=== PATIENT | male | born 1970 | race African-American/Black ===

== ENCOUNTER → 2016-10-29 | Outpatient (CLI) | payer OTHER ==
[2016-10-29 15:08] LABS: APPEARANCE,URINE CLEAR; BILIRUBIN,URINE NEGATIVE (NEGATIVE); CALCIUM OXALATE CRYSTALS,URINE FEW /HPF; GLUCOSE, URINE NEGATIVE (NEGATIVE); KETONES,URINE NEGATIVE (NEGATIVE); LEUKOCYTE ESTERASE,URINE NEGATIVE (NEGATIVE); NITRITE,URINE NEGATIVE (NEGATIVE); PROTEIN,URINE NEGATIVE (NEGATIVE); URINE SPECIFIC GRAVITY 1.014; UROBILINOGEN,URINE NEGATIVE mg/dL (<2.0)
[2016-10-29 15:09] LABS: ABSOLUTE EOSINOPHILS # (AUTO) 0.3 10^3/uL (0.0-0.6); ABSOLUTE LYMPHOCYTES (AUTO) 1.6 10^3/uL (0.5-4.7); ABSOLUTE MONOCYTES (AUTO) 0.8 10^3/uL (0.1-1.4); ABSOLUTE NEUT (AUTO) 4.1 10^3/uL (1.7-8.2); BASOPHILS % (AUTO) 0.7 % (0-2); EOSINOPHILS % (AUTO) 3.8 % (0-6); HEMATOCRIT 53.1 % (37.9-51.0); HEMOGLOBIN 18.4 g/dL (13.5-17.0); HGB HCT DIFFERENCE 2.1; LYMPHOCYTES % (AUTO) 23.6 % (13-45); MEAN CORPUSCULAR HGB CONC 34.7 g/dL (32.0-36.0); MEAN CORPUSCULAR VOLUME 92 fl (80-97); MONOCYTES % (AUTO) 11.6 % (3-13); RED BLOOD COUNT 5.76 10^6/uL (4.35-5.55); RED CELL DISTRIBUTION WIDTH 14.3 % (11.5-14.0); SEGMENTED NEUTROPHILS % (AUTO) 60.3 % (42-78); WHITE BLOOD COUNT 6.8 10^3/uL (4.0-10.5)
[2016-10-29 15:24] LABS: ANION GAP 11 (5-19); BLOOD UREA NITROGEN 9 mg/dL (7-20); CALCIUM 9.5 mg/dL (8.4-10.2); CARBON DIOXIDE 23 mmol/L (22-30); CHLORIDE 107 mmol/L (98-107); CREATININE RESULT 1.08 mg/dL (0.52-1.25); GLUCOSE 92 mg/dL (75-110); POTASSIUM 4.3 mmol/L (3.6-5.0); SODIUM 140.6 mmol/L (137-145)
--- NOTE | 2016-10-29 17:15 | RADIOLOGY REPORT (SQ) ---
EXAM DESCRIPTION: CHEST PA/LATERAL COMPLETED DATE/TIME: 10/29/2016 2:58 pm REASON FOR STUDY: PRE OP COMPARISON: None. EXAM PARAMETERS: NUMBER OF VIEWS: two views TECHNIQUE: Digital Frontal and Lateral radiographic views of the chest acquired. RADIATION DOSE: NA LIMITATIONS: none FINDINGS: LUNGS AND PLEURA: No opacities, masses or pneumothorax. No pleural effusion. MEDIASTINUM AND HILAR STRUCTURES: No masses or contour abnormalities. HEART AND VASCULAR STRUCTURES: Heart normal size. No evidence for failure. BONES: No acute findings. HARDWARE: None in the chest. OTHER: No other significant finding. IMPRESSION: NO SIGNIFICANT RADIOGRAPHIC FINDING IN THE CHEST. TECHNICAL DOCUMENTATION: JOB ID: [id number] [employer]- All Rights Reserved
--- NOTE | 2016-10-29 20:18 | EKG REPORT ---
SEVERITY:- ABNORMAL ECG - SINUS RHYTHM LEFT ANTERIOR FASCICULAR BLOCK : Confirmed by: Aylin Eddy 29-Oct-2016 20:18:25
== END ==
LOC: OD 13:35
PROVIDERS: ATTEND Orthopaedic Surgery
DX: Z01.810 Encounter for preprocedural cardiovascular examination (principal); Z01.812 Encounter for preprocedural laboratory examination; Z01.818 Encounter for other preprocedural examination
CPT/HCPCS: 36415; 71020; 80048; 81001; 85025; 93005; 93010

== ENCOUNTER 2016-11-16 07:11 | Inpatient (IN) | payer OTHER ==
[~2016-11-16 07:11] MED LIST: BUPIVACAINE INJ/PF LIPOSOME/PF 266 MG/20 ML SDV INJ PRN; CEFAZOLIN INJ 1 GM VIAL IV PRN; IBUPROFEN 800 MG in NORMAL SALINE 250 ML IV PRN; LACTATED RINGERS 1000 ML IV PRN; LANSOPRAZOLE 15 MG TAB.RAP.DR PO PRN; LIDOCAINE 0.5% INJ-PF (5 MG/ML) 50 ML SDV SUBCUT PRN; OXYCODONE HCL SR 10 MG TABLET PO PRN; VANCOMYCIN HCL 1,000 MG in DEXTROSE 5%-WATER 250 ML IV PRN
[2016-11-16] MEDS ORDERED: DEXAMETHASONE SOD PHOSPHATE INJ 4 MG/1 ML VIAL ONE (07:30)
[2016-11-16] MEDS ORDERED: PROPOFOL INJ 200 MG/20 ML VIAL IV ONE (07:30)
[2016-11-16] MEDS ORDERED: MIDAZOLAM 2 MG/2 ML INJ ONE ×2 (07:30→09:38)
[2016-11-16] MEDS ORDERED: ONDANSETRON HCL INJ/PF 4 MG/2 ML SDV ONE (07:30)
[2016-11-16] MEDS ORDERED: TRANEXAMIC ACID INJ/PF 1,000 MG/10 ML SDV IV ONE ×2 (07:30→12:06)
[2016-11-16] MEDS ORDERED: FENTANYL CITRATE INJ/PF 100 MCG/2 ML AMPUL ONE (07:30)
[2016-11-16] MEDS ORDERED: MORPHINE SULFATE 10 MG/ML INJ ONE (07:31)
[2016-11-16] MEDS: BUPIVACAINE INJ/PF LIPOSOME/PF 266 MG/20 ML SDV ONE ×2 (08:19→09:37)
[2016-11-16] MEDS: THROMBIN (BOVINE) TOPICAL 20000 UNIT VIAL ONE ×2 (08:21→09:37)
[2016-11-16] MEDS: THROMBIN (BOVINE) 5000 UNIT EPITAXIS KIT ONE ×2 (08:21→09:37)
[2016-11-16] MEDS ORDERED: DIPHENHYDRAMINE HCL 50 MG/ML VIAL IV PRN ×2 (10:09→10:32)
[2016-11-16] MEDS ORDERED: MEPERIDINE HCL/PF INJ 25 MG/1 ML DISP.SYRIN IV PRN (10:09)
[2016-11-16] MEDS ORDERED: FENTANYL CITRATE INJ/PF 100 MCG/2 ML AMPUL IV PRN ×3 (10:09)
[2016-11-16] MEDS ORDERED: PROMETHAZINE HCL INJ 25 MG/1 ML VIAL IV PRN ×2 (10:09)
[2016-11-16] MEDS ORDERED: MORPHINE SULFATE 10 MG/ML INJ IV PRN ×3 (10:09→10:32)
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
[2016-11-16] MEDS ORDERED: MAG HYDROX/AL HYDROX/SIMETH SUSP 30 ML UDCUP PO PRN ×2 (10:32→13:00)
[2016-11-16] MEDS ORDERED: OXYCODONE HCL IR 5 MG TABLET PO PRN (10:32)
[2016-11-16] MEDS ORDERED: RINGERS SOLUTION,LACTATED 1,000 ML IV PRN (10:32)
[2016-11-16] MEDS ORDERED: ONDANSETRON HCL INJ/PF 4 MG/2 ML SDV IV PRN ×2 (10:32→13:00)
[2016-11-16] MEDS ORDERED: ONDANSETRON 4 MG TAB.RAPDIS PO PRN ×2 (10:32→13:00)
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
[2016-11-16] MEDS: MORPHINE SULFATE 10 MG/ML INJ IV PRN ×3 (13:55→18:21)
[2016-11-16] MEDS ORDERED: ACETAMINOPHEN 100 ML IV ONE (16:32)
[2016-11-16] MEDS: IBUPROFEN 800 MG in NORMAL SALINE 250 ML IV SCH (18:15)
[2016-11-16] MEDS: RIVAROXABAN 10 MG TABLET PO SCH (21:53)
[2016-11-16] MEDS: PREGABALIN 75 MG CAPSULE PO SCH (21:53)
[2016-11-16] MEDS ORDERED: VANCOMYCIN HCL 1,000 MG in DEXTROSE 5%-WATER 250 ML IV ONE (22:00)
[2016-11-16] MEDS ORDERED: OXYCODONE HCL SR 10 MG TABLET PO SCH (22:00)
[2016-11-16] MEDS: ZOLPIDEM TARTRATE 5 MG TABLET PO PRN (23:51)
[2016-11-17] MEDS: MORPHINE SULFATE 10 MG/ML INJ IV PRN ×2 (00:08→03:20)
[2016-11-17] MEDS: IBUPROFEN 800 MG in NORMAL SALINE 250 ML IV SCH ×3 (01:40→18:28)
[2016-11-17] MEDS: LANSOPRAZOLE 30 MG TAB.RAP.DR PO SCH (05:27)
[2016-11-17 06:00] LABS: HEMATOCRIT 41.2 % (37.9-51.0); HEMOGLOBIN 14.2 g/dL (13.5-17.0); HGB HCT DIFFERENCE 1.4; MEAN CORPUSCULAR HEMOGLOBIN 31.8 pg (27.0-33.4); MEAN CORPUSCULAR HGB CONC 34.5 g/dL (32.0-36.0); MEAN CORPUSCULAR VOLUME 92 fl (80-97); RED BLOOD COUNT 4.47 10^6/uL (4.35-5.55); RED CELL DISTRIBUTION WIDTH 13.8 % (11.5-14.0); WHITE BLOOD COUNT 12.2 10^3/uL (4.0-10.5)
[2016-11-17 06:14] LABS: ANION GAP 8 (5-19); BLOOD UREA NITROGEN 13 mg/dL (7-20); CALCIUM 8.8 mg/dL (8.4-10.2); CARBON DIOXIDE 23 mmol/L (22-30); CHLORIDE 105 mmol/L (98-107); CREATININE RESULT 1.08 mg/dL (0.52-1.25); GLUCOSE 111 mg/dL (75-110); POTASSIUM 4.2 mmol/L (3.6-5.0); SODIUM 135.8 mmol/L (137-145)
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
[2016-11-17] MEDS: METOPROLOL SUCCINATE 50 MG TAB.SR.24H PO SCH (10:44)
[2016-11-17] MEDS: PREGABALIN 75 MG CAPSULE PO SCH ×2 (10:44→21:02)
[2016-11-17] MEDS: OXYCODONE HCL SR 40 MG TABLET PO SCH ×2 (10:44→21:02)
[2016-11-17] MEDS: OXYCODONE HCL IR 5 MG TABLET PO PRN ×2 (10:45→18:28)
[2016-11-17] MEDS: MORPHINE SULFATE 10 MG/ML INJ IM PRN ×2 (13:28→19:30)
[2016-11-17] MEDS: RIVAROXABAN 10 MG TABLET PO SCH (21:03)
[2016-11-18] MEDS: MORPHINE SULFATE 10 MG/ML INJ INJ PRN ×2 (00:22→05:22)
[2016-11-18] MEDS: IBUPROFEN 800 MG in NORMAL SALINE 250 ML IV SCH ×2 (01:09→09:36)
[2016-11-18] MEDS: LANSOPRAZOLE 30 MG TAB.RAP.DR PO SCH (05:19)
[2016-11-18 06:00] LABS: HEMATOCRIT 31.7 % (37.9-51.0); HGB HCT DIFFERENCE 2.2; MEAN CORPUSCULAR HEMOGLOBIN 32.9 pg (27.0-33.4); MEAN CORPUSCULAR HGB CONC 35.6 g/dL (32.0-36.0); MEAN CORPUSCULAR VOLUME 92 fl (80-97); RED BLOOD COUNT 3.44 10^6/uL (4.35-5.55); RED CELL DISTRIBUTION WIDTH 13.6 % (11.5-14.0); WHITE BLOOD COUNT 11.2 10^3/uL (4.0-10.5)
[2016-11-18 06:04] LABS: HEMOGLOBIN 11.3 g/dL (13.5-17.0)
--- NOTE | 2016-11-18 07:14 | PDOC PROGRESS REPORT ---
Subjective Progress Note for:: 11/18/16 Subjective:: 46-year-old -Azerbaijani male 2 days status post total left hip arthroplasty. Patient lying in bed complaining of pain this morning as well as bleeding through his OpSite dressing. Physical Exam Vital Signs: Temp Pulse Resp BP Pulse Ox 36.6 C 87 17 136/74 H 100 11/18/16 00:17 11/18/16 00:17 11/18/16 00:17 11/18/16 00:17 11/18/16 00:17 Intake & Output 11/17/16 11/18/16 11/19/16 06:59 06:59 06:59 Intake Total 7436 1472 Output Total 3350 Balance 4086 1472 Weight 124.74 kg General appearance: PRESENT: no acute distress, well-developed, well-nourished Head exam: PRESENT: atraumatic, normocephalic Pulses: PRESENT: normal dorsalis pedis pul, +2 pedal pulses bilateral Vascular exam: PRESENT: normal capillary refill Additional comments: Left lower extremity is fully extended with patient sitting recumbent in hospital bed. His postop site dressing is saturated with blood and saturated overlying gauze bandage as well. This dressing was removed wound site was clean and new OpSite dressing was placed this morning. Patient is ambulatory with physical therapy he has brisk capillary refill his motor and sensory functions are intact. Musculoskeletal exam: PRESENT: ambulatory Additional comments: Patient has made good progress with physical therapy ambulating 180 feet yesterday. Patient will continue to work with therapy today for further injury elation and increase strength and range of motion of the left lower extremity. Neurological exam: PRESENT: alert, awake, oriented to person, oriented to place , oriented to time, oriented to situation, CN II-XII grossly intact. ABSENT: motor sensory deficit Psychiatric exam: PRESENT: appropriate affect, normal mood. ABSENT: homicidal ideation, suicidal ideation Skin exam: PRESENT: dry, intact, warm. ABSENT: cyanosis, rash Results Laboratory Results: 11/18/16 05:19 11/17/16 05:20 11/18/16 05:19 WBC 11.2 H RBC 3.44 L Hgb 11.3 L D Hct 31.7 L MCV 92 MCH 32.9 MCHC 35.6 RDW 13.6 Plt Count 194 Impressions: Pelvis X-Ray 11/16/16 10:34 IMPRESSION: SATISFACTORY POSTOPERATIVE PELVIS. Assessment & Plan - Diagnosis (1) Arthritis of left hip Is this a current diagnosis for this admission?: Yes - Plan Summary Plan Summary: 46-year-old -Azerbaij[place] male 2 days status post total left hip arthroplasty. Patient is doing well in recovery overall aside from issues with pain management and continued bleeding of the surgical OpSite. Patient's oxycodone was increased in dosage and another dose of IV tranexamic acid was ordered this morning to help control bleeding. We will plan for discharge to his home tomorrow.
[2016-11-18] MEDS: METOPROLOL SUCCINATE 50 MG TAB.SR.24H PO SCH (09:36)
[2016-11-18] MEDS: PREGABALIN 75 MG CAPSULE PO SCH ×2 (09:36→22:09)
[2016-11-18] MEDS: OXYCODONE HCL IR 5 MG TABLET PO PRN ×3 (09:36→19:23)
[2016-11-18] MEDS: TRANEXAMIC ACID INJ/PF 1,000 MG/10 ML SDV IV SCH ×2 (09:36→14:11)
[2016-11-18] MEDS: ASPIRIN 325 MG TABLET PO SCH (09:36)
[2016-11-18] MEDS: OXYCODONE HCL SR 40 MG TABLET PO SCH ×2 (09:36→22:09)
[2016-11-19] MEDS: ZOLPIDEM TARTRATE 5 MG TABLET PO PRN ×2 (01:27→22:06)
[2016-11-19 05:25] LABS: HEMOGLOBIN 10.1 g/dL (13.5-17.0); HGB HCT DIFFERENCE 1.3; MEAN CORPUSCULAR HEMOGLOBIN 31.8 pg (27.0-33.4); MEAN CORPUSCULAR HGB CONC 34.8 g/dL (32.0-36.0); MEAN CORPUSCULAR VOLUME 92 fl (80-97); RED BLOOD COUNT 3.17 10^6/uL (4.35-5.55); RED CELL DISTRIBUTION WIDTH 13.4 % (11.5-14.0); WHITE BLOOD COUNT 10.5 10^3/uL (4.0-10.5)
[2016-11-19] MEDS: LANSOPRAZOLE 30 MG TAB.RAP.DR PO SCH (06:58)
--- NOTE | 2016-11-19 07:01 | PDOC PROGRESS REPORT ---
Subjective Progress Note for:: 11/19/16 Subjective:: Patient continues to complain of pain Physical Exam Vital Signs: Temp Pulse Resp BP Pulse Ox 36.7 C 79 16 115/77 99 11/18/16 23:55 11/18/16 23:55 11/18/16 23:55 11/18/16 23:55 11/18/16 16:43 Intake & Output 11/17/16 11/18/16 11/19/16 06:59 06:59 06:59 Intake Total 7436 1472 200 Output Total 3350 Balance 4086 1472 200 Weight 124.74 kg General appearance: PRESENT: mild distress Head exam: PRESENT: normocephalic Respiratory exam: PRESENT: unlabored Cardiovascular exam: PRESENT: RRR Pulses: PRESENT: +1 pedal pulses bilateral Vascular exam: PRESENT: normal capillary refill GI/Abdominal exam: PRESENT: soft Rectal exam: PRESENT: deferred Extremities exam: PRESENT: other - Left hip dressing saturated. Changed with an OpSite. Leg lengths are equal. Distal neurovascular examination is intact. Neurological exam: PRESENT: alert, awake, oriented to person, oriented to place , oriented to time, oriented to situation. ABSENT: motor sensory deficit Psychiatric exam: PRESENT: appropriate affect, normal mood. ABSENT: homicidal ideation, suicidal ideation Skin exam: PRESENT: dry, intact, warm. ABSENT: cyanosis, rash Results Laboratory Results: 11/19/16 04:25 11/17/16 05:20 11/19/16 04:25 WBC 10.5 RBC 3.17 L Hgb 10.1 L Hct 29.0 L MCV 92 MCH 31.8 MCHC 34.8 RDW 13.4 Plt Count 181 Impressions: Pelvis X-Ray 11/16/16 10:34 IMPRESSION: SATISFACTORY POSTOPERATIVE PELVIS. Status: Imported from PACS Assessment & Plan - Diagnosis (1) Arthritis of left hip Is this a current diagnosis for this admission?: Yes Plan: 46-year-old black male postop day 3 status post left hip arthroplasty. Patient continues to have some wound drainage. Making progress with physical therapy. Because of social situation we will look into assisted facility placement. - Time Time Spent with patient: 15-24 minutes Anticipated discharge: SNF Within: when bed available
[2016-11-19] MEDS: OXYCODONE HCL SR 40 MG TABLET PO SCH ×2 (08:47→22:05)
[2016-11-19] MEDS: METOPROLOL SUCCINATE 50 MG TAB.SR.24H PO SCH (08:47)
[2016-11-19] MEDS: OXYCODONE HCL IR 5 MG TABLET PO PRN ×3 (08:47→19:18)
[2016-11-19] MEDS: ASPIRIN 325 MG TABLET PO SCH (08:47)
[2016-11-19] MEDS: PREGABALIN 75 MG CAPSULE PO SCH ×2 (08:47→22:06)
[2016-11-20] MEDS: OXYCODONE HCL IR 5 MG TABLET PO PRN ×2 (03:15→07:51)
[2016-11-20] MEDS: LANSOPRAZOLE 30 MG TAB.RAP.DR PO SCH (06:50)
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
[2016-11-20] MEDS: ASPIRIN 325 MG TABLET PO SCH (09:51)
[2016-11-20] MEDS: OXYCODONE HCL SR 40 MG TABLET PO SCH (09:51)
[2016-11-20] MEDS: PREGABALIN 75 MG CAPSULE PO SCH (09:52)
[2016-11-20] MEDS: METOPROLOL SUCCINATE 50 MG TAB.SR.24H PO SCH (09:52)
[2016-11-20 11:30] VITALS: BP 138/59
== END 2016-11-20 12:04 | disposition home health service (06) | DRG 470 ==
LOC: INOR 07:11 → 4S 12:45
PROVIDERS: ADMIT Orthopaedic Surgery; ATTEND Orthopaedic Surgery
PROC: 0KCG0ZZ Extirpation of Matter from Left Trunk Muscle, Open Approach (ICD-10-PCS; 2016-11-16)
PROC: 01NF0ZZ Release Sciatic Nerve, Open Approach (ICD-10-PCS; 2016-11-16)
PROC: 0SRB02A Replacement of Left Hip Joint with Metal on Polyethylene Synthetic Substitute, Uncemented, Open Approach (ICD-10-PCS; principal; 2016-11-16 09:00)
DX: M16.52 Unilateral post-traumatic osteoarthritis, left hip (principal); Z68.42 Body mass index [BMI] 45.0-49.9, adult; E66.3 Overweight; Z18.89 Other specified retained foreign body fragments; S72.002S Fracture of unspecified part of neck of left femur, sequela; W32.0XXD Accidental handgun discharge, subsequent encounter
CPT/HCPCS: 01214; 36415; 72170; 80048; 85027; 86850; 86900; 86901; 88304; 88311; 94799; C1713; C9290; J0690; J1100; J1741; J2250; J2270; J2405; J2704; J3010; J3370; J3490; J7050; J7060

== ENCOUNTER 2016-12-27 12:17 | Emergency (ER) | payer SELFPAY ==
--- NOTE | 2016-12-27 12:41 | ER Document Report ---
ED Medical Screen (RME) - General Chief Complaint: Hip Pain Stated Complaint: HIP PAIN Time Seen by Provider: 12/27/16 12:34 Notes: 46-year-old male patient had a total left hip on 11/16/2016 for traumatic arthritis and malunion of prior fracture. He reports that the wound continues to drain. Yesterday he began having pain in the left hip such that it is too painful to move the hip. That is a new problem. I have greeted and performed a rapid initial assessment of this patient. A comprehensive ED assessment and evaluation of the patient, analysis of test results and completion of the medical decision making process will be conducted by additional ED providers. TRAVEL OUTSIDE OF THE [place] IN LAST 30 DAYS: No - Related Data Allergies/Adverse Reactions: acetaminophen [From Tylenol] Adverse Reaction (Verified 12/27/16 12:21) Past Medical History - Past Medical History Cardiac Medical History: Reports: Hx Hypertension Denies: Hx Atrial Fibrillation, Hx Congestive Heart Failure, Hx Coronary Artery Disease, Hx Heart Attack, Hx Hypercholesterolemia, Hx Peripheral Vascular Disease, Hx Heart Murmur Renal/ Medical History: Denies: Hx Peritoneal Dialysis Musculoskeltal Medical History: Reports Hx Arthritis, Denies Hx Fibromyalgia, Denies Hx Muscular Dystrophy, Reports Hx Musculoskeletal Trauma - LEFT HIP Traumatic Medical History: Denies: Hx Fractures Past Surgical History: Reports: Hx Orthopedic Surgery. Denies: Hx Appendectomy , Hx Bowel Surgery, Hx Cholecystectomy, Hx Coronary Artery Bypass Graft, Hx Gastric Bypass Surgery, Hx Herniorrhaphy, Hx Pacemaker, Hx Tonsillectomy - Immunizations Immunizations up to date: Yes History of Influenza Vaccine for 11/2016 - 04/2017 Season: Refused Physical Exam - Vital signs Vitals: Temp Pulse Resp BP Pulse Ox 99.3 F 114 H 18 135/90 H 97 12/27/16 12:21 12/27/16 12:21 12/27/16 12:21 12/27/16 12:21 12/27/16 12:21 Course - Vital Signs Vital signs: Temp Pulse Resp BP Pulse Ox 99.3 F 114 H 18 135/90 H 97 12/27/16 12:21 12/27/16 12:21 12/27/16 12:21 12/27/16 12:21 12/27/16 12:21
[2016-12-27 13:16] LABS: ABSOLUTE BASOPHILS # (AUTO) 0.1 10^3/uL (0.0-0.2); ABSOLUTE EOSINOPHILS # (AUTO) 0.2 10^3/uL (0.0-0.6); ABSOLUTE LYMPHOCYTES (AUTO) 1.3 10^3/uL (0.5-4.7); ABSOLUTE MONOCYTES (AUTO) 1.7 10^3/uL (0.1-1.4); ABSOLUTE NEUT (AUTO) 8.8 10^3/uL (1.7-8.2); BASOPHILS % (AUTO) 0.8 % (0-2); EOSINOPHILS % (AUTO) 1.3 % (0-6); HEMATOCRIT 46.3 % (37.9-51.0); HEMOGLOBIN 15.7 g/dL (13.5-17.0); HGB HCT DIFFERENCE 0.8; LYMPHOCYTES % (AUTO) 11.1 % (13-45); MEAN CORPUSCULAR HEMOGLOBIN 30.8 pg (27.0-33.4); MEAN CORPUSCULAR HGB CONC 33.8 g/dL (32.0-36.0); MEAN CORPUSCULAR VOLUME 91 fl (80-97); MONOCYTES % (AUTO) 14.2 % (3-13); RED BLOOD COUNT 5.09 10^6/uL (4.35-5.55); RED CELL DISTRIBUTION WIDTH 13.7 % (11.5-14.0); SEGMENTED NEUTROPHILS % (AUTO) 72.6 % (42-78); WHITE BLOOD COUNT 12.1 10^3/uL (4.0-10.5)
[2016-12-27 13:33] LABS: ALANINE AMINOTRANSFERASE 33 U/L (21-72); ALBUMIN 4.4 g/dL (3.5-5.0); ALKALINE PHOSPHATASE 90 U/L (38-126); ANION GAP 16 (5-19); ASPARTATE AMINO TRANSFERASE 24 U/L (17-59); BILIRUBIN,DIRECT 0.3 mg/dL (0.0-0.4); BILIRUBIN,TOTAL 1.4 mg/dL (0.2-1.3); BLOOD UREA NITROGEN 9 mg/dL (7-20); CALCIUM 9.4 mg/dL (8.4-10.2); CARBON DIOXIDE 21 mmol/L (22-30); CHLORIDE 102 mmol/L (98-107); GLUCOSE 105 mg/dL (75-110); SODIUM 138.9 mmol/L (137-145); TOTAL PROTEIN 8.1 g/dL (6.3-8.2)
--- NOTE | 2016-12-27 13:34 | RADIOLOGY REPORT (SQ) ---
EXAM DESCRIPTION: HIP LEFT AP/LATERAL COMPLETED DATE/TIME: 12/27/2016 1:15 pm REASON FOR STUDY: new pain w/ movement COMPARISON: 09/03/2015 NUMBER OF VIEWS: Two views. TECHNIQUE: AP pelvis and additional frog-leg view of the left hip. LIMITATIONS: None. FINDINGS: MINERALIZATION: Normal. LEFT HIP: Intact hip arthroplasty. RIGHT HIP: No fracture or dislocation. No worrisome bone lesions. PUBIS AND ISCHIUM: No fracture. PELVIS: No fracture. SACRUM: No fracture or dislocation. No worrisome bone lesions. LOWER LUMBAR SPINE: No fracture or dislocation. No worrisome bone lesions. No significant disc disea se. SOFT TISSUES: No findings. OTHER: No other significant finding. IMPRESSION: NO RADIOGRAPHIC EVIDENCE OF ACUTE INJURY. TECHNICAL DOCUMENTATION: JOB ID: [id number] [employer]- All Rights Reserved
[2016-12-27 13:36] LABS: APPEARANCE,URINE SLIGHTLY-CLOUDY; BILIRUBIN,URINE NEGATIVE (NEGATIVE); GLUCOSE, URINE NEGATIVE (NEGATIVE); KETONES,URINE NEGATIVE (NEGATIVE); LEUKOCYTE ESTERASE,URINE NEGATIVE (NEGATIVE); NITRITE,URINE NEGATIVE (NEGATIVE); PROTEIN,URINE 30 mg/dL (NEGATIVE); URINE SPECIFIC GRAVITY 1.031; UROBILINOGEN,URINE NEGATIVE mg/dL (<2.0)
[2016-12-27 13:53] LABS: ERYTHROCYTE SEDIMENTATION RATE 10 mm/hr (0-15)
[2016-12-27] MEDS ORDERED: OXYCODONE HCL IR 5 MG TABLET PO ONE (14:25)
[2016-12-27] MEDS ORDERED: CEPHALEXIN 500 MG CAPSULE PO ONE (14:25)
[2016-12-27] MEDS ORDERED: IBUPROFEN 600 MG TABLET PO ONE (14:25)
--- NOTE | 2016-12-27 14:31 | ER Document Report ---
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 He has an appointment with Dr. Cho in 2 days. Patient said the pain is constant and is not affected by his walking or hip flexion or extension. He denies fevers, numbness, tingling, new injury, chest pain or shortness of breath. TRAVEL OUTSIDE OF THE [place] IN LAST 30 DAYS: No - Related Data Allergies/Adverse Reactions: acetaminophen [From Tylenol] Adverse Reaction (Verified 12/27/16 12:21) Past Medical History - General Information source: Patient - Social History Smoking Status: Current Every Day Smoker Chew tobacco use (# tins/day): No Frequency of alcohol use: Heavy Drug Abuse: Marijuana Family History: Reviewed & Not Pertinent Patient has suicidal ideation: No Patient has homicidal ideation: No - Past Medical History Cardiac Medical History: Reports: Hx Hypertension Denies: Hx Atrial Fibrillation, Hx Congestive Heart Failure, Hx Coronary Artery Disease, Hx Heart Attack, Hx Hypercholesterolemia, Hx Peripheral Vascular Disease, Hx Heart Murmur Renal/ Medical History: Denies: Hx Peritoneal Dialysis Musculoskeltal Medical History: Reports Hx Arthritis, Denies Hx Fibromyalgia, Denies Hx Muscular Dystrophy, Reports Hx Musculoskeletal Trauma - LEFT HIP Traumatic Medical History: Denies: Hx Fractures Past Surgical History: Reports: Hx Orthopedic Surgery - right knee left hip replacement. Denies: Hx Appendectomy, Hx Bowel Surgery, Hx Cholecystectomy, Hx Coronary Artery Bypass Graft, Hx Gastric Bypass Surgery, Hx Herniorrhaphy, Hx Pacemaker, Hx Tonsillectomy - Immunizations Immunizations up to date: Yes Hx Diphtheria, Pertussis, Tetanus Vaccination: Yes Review of Systems - Review of Systems Notes: REVIEW OF SYSTEMS: CONSTITUTIONAL: -fevers, -chills EENT: -eye pain, -difficulty swallowing, -nasal congestion CARDIOVASCULAR:-chest pain, -syncope. RESPIRATORY: -cough, -SOB GASTROINTESTINAL: -abdominal pain, -nausea, -vomiting, -diarrhea GENITOURINARY: -dysuria, -hematuria MUSCULOSKELETAL: -back pain, -neck pain, +left hip pain SKIN: +left hip surgical wound HEMATOLOGIC: -easy bruising or bleeding. LYMPHATIC: -swollen, enlarged glands. NEUROLOGICAL: -altered mental status or loss of consciousness, -headache, - neurologic symptoms PSYCHIATRIC: -anxiety, -depression. ALL OTHER SYSTEMS REVIEWED AND NEGATIVE. Physical Exam - Vital signs Vitals: Temp Pulse Resp BP Pulse Ox 99.3 F 114 H 18 135/90 H 97 12/27/16 12:21 12/27/16 12:21 12/27/16 12:21 12/27/16 12:21 12/27/16 12:21 - Notes Notes: PHYSICAL EXAMINATION: GENERAL: Well-appearing, well-nourished and in no acute distress. HEAD: Atraumatic, normocephalic. EYES: Pupils equal round and reactive to light, extraocular movements intact, sclera anicteric, conjunctiva are normal. ENT: nares patent, oropharynx clear without exudates. Moist mucous membranes. NECK: Normal range of motion, supple without lymphadenopathy LUNGS: Breath sounds clear to auscultation bilaterally and equal. No wheezes rales or rhonchi. HEART: Regular rate and rhythm without murmurs ABDOMEN: Soft, nontender, normoactive bowel sounds. No guarding, no rebound. No masses appreciated. EXTREMITIES: Normal range of motion, no pitting or edema. No cyanosis. NEUROLOGICAL: Cranial nerves grossly intact. Normal speech, normal gait. Normal sensory and motor exams. PSYCH: Normal mood, normal affect. SKIN: Warm, Dry, normal turgor. Left lateral hip surgical wound with 2 areas of serous drainage, no surrounding erythema or fluctuant areas under wound. Course - Re-evaluation Re-evalutation: Patient appears well. His initial tachycardia resolved after his pain was controlled. There is no evidence of a septic hip at this time with a normal ESR and no pain on flexion or extension of the left hip. Will begin antibiotics and have him follow-up with his orthopedic surgeon as scheduled in 2 days for recheck of his symptoms. Given very strict return precautions, especially about septic hip and abscess formation, and he understands. - Vital Signs Vital signs: Temp Pulse Resp BP Pulse Ox 98.7 F 82 20 143/86 H 97 12/27/16 15:32 12/27/16 15:32 12/27/16 15:32 12/27/16 15:32 12/27/16 15:32 - Laboratory Result Diagrams: 12/27/16 13:00 12/27/16 13:00 Laboratory results interpreted by me: 12/27/16 12/27/16 12/27/16 13:00 13:00 13:00 WBC 12.1 H Lymphocytes % 11.1 L Monocytes % 14.2 H Absolute Neutrophils 8.8 H Absolute Monocytes 1.7 H Carbon Dioxide 21 L Total Bilirubin 1.4 H Urine Protein 30 H Urine Blood SMALL H - Diagnostic Test Radiology reviewed: Image reviewed, Reports reviewed Discharge - Discharge Clinical Impression: Infected wound Condition: Stable Disposition: HOME, SELF-CARE Additional Instructions: Take the full course of antibiotics as prescribed. You may take Motrin for pain and hydrocodone for severe pain. You must follow-up with Dr. Cho tomorrow for a recheck of your symptoms. Return to the ER if you have worsening pain, fevers or difficulty moving your hip. CELLULITIS: You have an infection of your skin and underlying soft tissues called cellulitis. This is due to bacteria, which can enter through any break in the skin, or even through an irritated hair follicle. Untreated, cellulitis will usually worsen. Antibiotics are required. Usually, warm packs or warm soaks, and elevation of the infected area are recommended. You should start getting better within 24 to 36 hours. Most infections respond quickly to the right medication. Follow-up care is important, however, to check for abscess (boil) formation, unsuspected foreign body, or resistant infection. If you develop fever, chills, or if the area of infection is becoming rapidly more swollen or painful, call the doctor at once. ANTIBIOTIC THERAPY: You have been given an antibiotic prescription. It's important that you take all the medication, unless instructed otherwise by your physician. Failure to complete the entire course can result in relapse of your condition. Common side effects of antibiotics include nausea, intestinal cramping, or diarrhea. Women may develop vaginal yeast infections, and babies can get yeast (thrush) in the mouth following the use of antibiotics. Contact your physician if you develop significant side effects from this medication. Allergy to this antibiotic can result in hives, wheezing, faintness, or itching. If symptoms of allergy occur, stop the medication and call the doctor. ORAL NARCOTIC MEDICATION: You have been given a prescription for pain control. This medication is a narcotic. It's best taken with food, as nausea can result if taken on an empty stomach. Don't operate machinery or drive within six hours of taking this medication. Do not combine this medicine with alcohol, or with any medication which can cause sedation (such as cold tablets or sleeping pills) unless you get permission from the physician. Narcotics tend to cause constipation. If possible, drink plenty of fluids and eat a diet high in fiber and fruits. Please be aware that prescription narcotics also have the potential for abuse. People become addicted to these medications because of the general sense of wellbeing that they induce. This feeling along with a significant reduction in tension, anxiety, and aggression provides a stimulating seductive quality to these drugs. Once your pain is under control, we encourage you to discard your unused narcotics. FOLLOW-UP CARE: If you have been referred to a physician for follow-up care, call the physician s office for an appointment as you were instructed or within the next two days. If you experience worsening or a significant change in your symptoms, notify the physician immediately or return to the Emergency Department at any time for re-evaluation. Prescriptions: Cephalexin Monohydrate [Keflex 500 mg Capsule] 500 mg PO TID 7 Days capsule Hydrocodone/Ibuprofen [Ibudone 5-200 mg Tablet] 1 each PO Q6H PRN #7 tablet PRN Reason: Referrals: JOVON CHO MD [ACTIVE STAFF] - Follow up as needed
[2016-12-27 15:36] VITALS: BP 143/86
== END 2016-12-27 15:36 | disposition home or self-care (01) ==
LOC: ER 12:17
DX: T81.4XXA Infection following a procedure, initial encounter (principal); Y83.8 Other surgical procedures as the cause of abnormal reaction of the patient, or of later complication, without mention of misadventure at the time of the procedure; Z96.642 Presence of left artificial hip joint; I10 Essential (primary) hypertension
CPT/HCPCS: 36415; 80053; 81001; 85025; 85652; 87040; 99284

== ENCOUNTER → 2017-01-19 | Outpatient (CLI) | payer OTHER ==
--- NOTE | 2017-01-19 16:20 | RADIOLOGY REPORT (SQ) ---
EXAM DESCRIPTION: NM 3 PHASE BONE SCAN COMPLETED DATE/TIME: 01/19/2017 3:56 pm REASON FOR STUDY: T81.4XXA INFECTION FOLLOWING A PROCEDURE, INITIAL ENCOUNTER T81.4XXA INFECTION FO LLOWING A PROCEDURE, INITIAL ENCOUNTER COMPARISON: X-ray dated 12/27/2016 and 11/16/2016. RADIONUCLIDE AND DOSE: 22.0 millicuries Tc99m MDP. The route of agent administration: Intravenous. ADDITIONAL DRUGS AND DOSES: None. TECHNIQUE: Following injection of the radiopharmaceutical, serial blood flow images acquired. Equil ibrium blood pool images then acquired. Routine delayed images at 3 hour acquired of the areas of cl inical concern with additional focused images as needed. AREA OF INTEREST: Pelvis and hips. LIMITATIONS: None. FINDINGS: VASCULAR FLOW IMAGES: No asymmetry or focal areas of hyperemia. BLOOD POOL IMAGES: No asymmetry or focal areas of soft-tissue hyper-perfusion. BONES: Photopenia in the left hip secondary to prosthesis. Prominent activity in the proximal left f emur and left acetabulum. Activity in the right and left side of the sacrum. KIDNEYS: Symmetric excretion without obstruction. OTHER: No other significant finding. IMPRESSION: 1. PROMINENT ACTIVITY IN THE PROXIMAL LEFT FEMUR AND LEFT ACETABULUM. THE PATIENT IS 2 MONTHS POSTOP ERATIVE FROM LEFT HIP PROSTHESIS AND THIS COULD REPRESENT EXPECTED POSTOPERATIVE ACTIVITY SECONDARY T O BONY HEALING. 2. ACTIVITY IN THE RIGHT AND LEFT SIDE OF THE SACRUM. NO SIGNIFICANT FINDINGS ON PREVIOUS X-RAY (01/2017). CANNOT EXCLUDE POSSIBLE OCCULT FRACTURE OR INSUFFICIENCY FRACTURE. RECOMMEND REPEAT X-RAY OF THE SACRUM AND IF NO ABNORMAL FINDINGS FOLLOW-UP MRI MAY BE INDICATED. COMMENT: Quality measure 147: Current bone scan is compared with any available plain radiographs, p rior bone scans, and CT/MRI. TECHNICAL DOCUMENTATION: JOB ID: [id number] [employer]- All Rights Reserved
== END ==
LOC: RAD 11:20
PROVIDERS: ATTEND Physician Assistant Surgical
DX: T81.4XXA Infection following a procedure, initial encounter (principal)
CPT/HCPCS: 78315; A9561; Q9969

== ENCOUNTER → 2017-01-19 | Outpatient (CLI) | payer OTHER ==
[2017-01-19 14:27] LABS: HEMATOCRIT 47.9 % (37.9-51.0); HEMOGLOBIN 16.4 g/dL (13.5-17.0); HGB HCT DIFFERENCE 1.3; MEAN CORPUSCULAR HEMOGLOBIN 29.9 pg (27.0-33.4); MEAN CORPUSCULAR HGB CONC 34.2 g/dL (32.0-36.0); MEAN CORPUSCULAR VOLUME 88 fl (80-97); RED BLOOD COUNT 5.48 10^6/uL (4.35-5.55); RED CELL DISTRIBUTION WIDTH 13.4 % (11.5-14.0); WHITE BLOOD COUNT 6.4 10^3/uL (4.0-10.5)
[2017-01-19 14:46] LABS: ALANINE AMINOTRANSFERASE 41 U/L (21-72); ALBUMIN 4.4 g/dL (3.5-5.0); ALKALINE PHOSPHATASE 95 U/L (38-126); ANION GAP 15 (5-19); ASPARTATE AMINO TRANSFERASE 27 U/L (17-59); BILIRUBIN,DIRECT 0.4 mg/dL (0.0-0.4); BILIRUBIN,TOTAL 0.5 mg/dL (0.2-1.3); BLOOD UREA NITROGEN 12 mg/dL (7-20); C-REACTIVE PROTEIN 35.3 mg/L (<10.0); CALCIUM 10.3 mg/dL (8.4-10.2); CARBON DIOXIDE 23 mmol/L (22-30); CHLORIDE 104 mmol/L (98-107); CREATININE RESULT 1.05 mg/dL (0.52-1.25); GLUCOSE 90 mg/dL (75-110); POTASSIUM 4.5 mmol/L (3.6-5.0); SODIUM 141.7 mmol/L (137-145); TOTAL PROTEIN 8.4 g/dL (6.3-8.2)
[2017-01-19 15:12] LABS: ERYTHROCYTE SEDIMENTATION RATE 35 mm/hr (0-15)
== END ==
LOC: OD 13:45
PROVIDERS: ATTEND Physician Assistant Surgical
DX: T81.4XXA Infection following a procedure, initial encounter (principal)
CPT/HCPCS: 36415; 80053; 85027; 85652; 86140

== ENCOUNTER → 2017-02-05 | Outpatient (CLI) | payer OTHER ==
--- NOTE | 2017-02-05 16:47 | RADIOLOGY REPORT (SQ) ---
EXAM DESCRIPTION: CT PELVIS WITHOUT COMPLETED DATE/TIME: 02/05/2017 2:10 pm REASON FOR STUDY: PAIN IN LEFT HIP M25.552 PAIN IN LEFT HIP COMPARISON: AP pelvis 12/27/2016, 11/16/2016 Bone scan 01/19/2017 TECHNIQUE: CT scan of the pelvis performed without intravenous or oral contrast. Images reviewed wi th soft tissue and bone windows. Reconstructed coronal and sagittal MPR images reviewed. All images stored on PACS. All CT scanners at this facility use dose modulation, iterative reconstruction, and/or weight based d osing when appropriate to reduce radiation dose to as low as reasonably achievable (ALARA). [facility]: Dose Right [facility]: CareDose [facility]: Dose Right [facility]: Teradose 4D [facility]: [employer] RADIATION DOSE: CT Rad equipment meets quality standard of care and radiation dose reduction techniq ues were employed. CTDIvol: 43.6 mGy. DLP: 1661 mGy-cm. mGy. LIMITATIONS: None. FINDINGS: Normal bone density. On the right side, there is a prominent bony spurring at the upper aspect of the right SI joint. The re is mild bony spurring at the upper aspect of the left SI joint, and asymmetric left-sided facet ar thropathy. Left-sided L5-S1 facet arthropathy likely accounts for focal increased uptake in this are a on prior bone scan 01/19/2017. No occult fractures of the bony pelvis. There is osteoarthritis at the right hip, with joint space narrowing and acetabular rim bony spurring . On the left side, patient is post hip replacement. The acetabular cup is slightly rotated in the cou nter clockwise direction on the coronal images. Single anchoring screw along the dorsal aspect of th e acetabular component. There is lucency between the left aspect acetabulum and acetabular component of the prosthesis. No gross lucency around the femoral component of the prosthesis. No gross CT ev idence of left hip joint effusion Surgical tract over the left lateral gluteal region. No seroma/hematoma. Pelvic organs, pelvic soft tissues unremarkable. No inguinal adenopathy. IMPRESSION: Left acetabular cup appears slightly rotated in a counter clockwise direction on the cor onal images. Persistent lucency between the left bony [place] acetabulum and prosthesis TECHNICAL DOCUMENTATION: JOB ID: [id number] Quality ID # [id number]: Final reports with documentation of one or more dose reduction techniques (e.g., Au tomated exposure control, adjustment of the mA and/or kV according to patient size, use of iterative reconstruction technique) 2010 [employer]- All Rights Reserved
== END ==
LOC: RAD 13:29
PROVIDERS: ATTEND Physician Assistant Surgical
DX: M25.552 Pain in left hip (principal)
CPT/HCPCS: 72192

== ENCOUNTER → 2017-03-02 | Outpatient (CLI) | payer OTHER ==
[2017-03-02 13:15] LABS: HEMATOCRIT 46.1 % (37.9-51.0); HEMOGLOBIN 15.6 g/dL (13.5-17.0); MEAN CORPUSCULAR HEMOGLOBIN 28.5 pg (27.0-33.4); MEAN CORPUSCULAR HGB CONC 33.9 g/dL (32.0-36.0); MEAN CORPUSCULAR VOLUME 84 fl (80-97); PLATELET COUNT 267 10^3/uL (150-450); RED BLOOD COUNT 5.47 10^6/uL (4.35-5.55); RED CELL DISTRIBUTION WIDTH 14.2 % (11.5-14.0); WHITE BLOOD COUNT 5.9 10^3/uL (4.0-10.5)
[2017-03-02 13:17] LABS: APPEARANCE,URINE SLIGHTLY-CLOUDY; BILIRUBIN,URINE NEGATIVE (NEGATIVE); COLOR,URINE YELLOW; GLUCOSE, URINE NEGATIVE (NEGATIVE); KETONES,URINE NEGATIVE (NEGATIVE); LEUKOCYTE ESTERASE,URINE NEGATIVE (NEGATIVE); NITRITE,URINE NEGATIVE (NEGATIVE); PROTEIN,URINE 30 mg/dL (NEGATIVE); URINE SPECIFIC GRAVITY 1.029; UROBILINOGEN,URINE NEGATIVE mg/dL (<2.0)
[2017-03-02 13:43] LABS: ABSOLUTE LYMPHOCYTES# (MANUAL) 1.1 10^3/uL (0.5-4.7); ABSOLUTE NEUTROPHILS# (MANUAL) 3.5 10^3/uL (1.7-8.2); BASOPHILS % (MANUAL) 0 % (0-2); EOSINOPHILS % (MANUAL) 5 % (0-6); LYMPHOCYTES % (MANUAL) 18 % (13-45); MONOCYTES % (MANUAL) 17 % (3-13); SEGMENTED NEUTROPHILS % (MAN) 59 % (42-78); TOTAL CELLS COUNTED 100
[2017-03-02 13:44] LABS: ANISOCYTOSIS SLIGHT; PLATELET COMMENT ADEQUATE; PLATELET LARGE PRESENT; TOXIC GRANULATION SLIGHT
--- NOTE | 2017-03-02 15:45 | RADIOLOGY REPORT (SQ) ---
EXAM DESCRIPTION: CHEST PA/LATERAL COMPLETED DATE/TIME: 03/02/2017 2:50 pm REASON FOR STUDY: PRE OP COMPARISON: 10/29/2016 EXAM PARAMETERS: NUMBER OF VIEWS: two views TECHNIQUE: Digital Frontal and Lateral radiographic views of the chest acquired. RADIATION DOSE: NA LIMITATIONS: none FINDINGS: LUNGS AND PLEURA: No opacities, masses or pneumothorax. No pleural effusion. MEDIASTINUM AND HILAR STRUCTURES: No masses or contour abnormalities. HEART AND VASCULAR STRUCTURES: Heart normal size. No evidence for failure. BONES: No acute findings. HARDWARE: None in the chest. OTHER: No other significant finding. IMPRESSION: NO SIGNIFICANT RADIOGRAPHIC FINDING IN THE CHEST. TECHNICAL DOCUMENTATION: JOB ID: [id number] [employer]- All Rights Reserved
--- NOTE | 2017-03-02 20:28 | EKG REPORT ---
SEVERITY:- OTHERWISE NORMAL ECG - SINUS RHYTHM LEFT AXIS DEVIATION : Confirmed by: Aylin Eddy 02-Mar-2017 20:26:58
[2017-03-03 13:16] LABS: BLOOD UREA NITROGEN 10 mg/dL (7-20); CALCIUM 10.2 mg/dL (8.4-10.2); CARBON DIOXIDE 27 mmol/L (22-30); CHLORIDE 105 mmol/L (98-107); GLUCOSE 89 mg/dL (75-110); POTASSIUM 4.4 mmol/L (3.6-5.0)
[2017-03-03 13:25] LABS: ANION GAP 9 (5-19); SODIUM 141.3 mmol/L (137-145)
== END ==
LOC: OD 11:41
PROVIDERS: ATTEND Orthopaedic Surgery
DX: Z01.818 Encounter for other preprocedural examination (principal)
CPT/HCPCS: 36415; 71046; 80048; 81001; 85025; 93005; 93010

== ENCOUNTER 2017-03-15 06:42 | Inpatient (IN) | payer OTHER ==
[~2017-03-15 06:42] MED LIST changes: +BUPIVACAINE INJ/PF LIPOSOME/PF 266 MG/20 ML SDV IJ PRN; -BUPIVACAINE INJ/PF LIPOSOME/PF 266 MG/20 ML SDV INJ PRN; +BUPIVACAINE INJ/PF LIPOSOME/PF 266 MG/20 ML SDV ONE; -IBUPROFEN 800 MG in NORMAL SALINE 250 ML IV PRN; +IBUPROFEN 800 MG/NS 250 ML IV PRN; +THROMBIN (BOVINE) 5000 UNIT EPITAXIS KIT ONE; +THROMBIN (BOVINE) TOPICAL 20000 UNIT VIAL ONE
[2017-03-15] MEDS ORDERED: FENTANYL CITRATE INJ/PF 100 MCG/2 ML AMPUL ONE (07:05)
[2017-03-15] MEDS ORDERED: ONDANSETRON HCL INJ/PF 4 MG/2 ML SDV ONE (07:05)
[2017-03-15] MEDS ORDERED: MIDAZOLAM 2 MG/2 ML INJ ONE (07:05)
[2017-03-15] MEDS ORDERED: PROPOFOL INJ 200 MG/20 ML VIAL IV ONE ×2 (07:05→09:22)
[2017-03-15] MEDS ORDERED: TRANEXAMIC ACID INJ/PF 1,000 MG/10 ML SDV IV ONE ×2 (07:54→12:00)
[2017-03-15] MEDS ORDERED: HYDROMORPHONE HCL INJ/PF 2 MG/ML AMPULE ONE (07:59)
--- NOTE | 2017-03-15 08:20 | Physician Advisory Note ---
Physician Advisor ProgressNote .: [facility] for this patient. Physician Advisor Statement: Please consider documenting, if you agree: 1. "Surgery needed due to Failed previous joint arthroplasty needing revision due to " (just spelling it out for insurer....) Thanks! CK
[2017-03-15] MEDS ORDERED: PROMETHAZINE HCL INJ 25 MG/1 ML VIAL IV PRN ×2 (09:01)
[2017-03-15] MEDS ORDERED: FENTANYL CITRATE INJ/PF 100 MCG/2 ML AMPUL IV PRN ×3 (09:01)
[2017-03-15] MEDS ORDERED: MORPHINE SULFATE 10 MG/ML INJ IV PRN ×3 (09:01→10:22)
[2017-03-15] MEDS ORDERED: MEPERIDINE HCL/PF INJ 25 MG/1 ML DISP.SYRIN IV PRN (09:01)
[2017-03-15] MEDS ORDERED: DIPHENHYDRAMINE HCL 50 MG/ML VIAL IV PRN ×2 (09:01→10:22)
--- NOTE | 2017-03-15 09:56 | Operative Report ---
Operative Report DATE OF SURGERY: 03/15/17 PREOPERATIVE DIAGNOSIS: Painful left hip arthroplasty, loose acetabular component OPERATION: Left acetabular revision SURGEON: JOVON CHO 1ST BLOG WRITER: BRET DUARTE ANESTHESIA: Spinal TISSUE REMOVED OR ALTERED: Cultures 2 to microbiology. Implant 1 to CSS. Bone reamings 1 to pathology ESTIMATED BLOOD LOSS: 100 PROCEDURE: Implants used: Femur: Unchanged Acetabular shell: 60 mm hemispherical revision shell Liner: 36 mm flat cross-link polyethylene liner Head: 36 mm chrome cobalt head +10 neck extension The patient is placed in a right lateral decubitus position on the operating table. The left lower extremity and hindquarter is prepped and draped in a sterile fashion. A curvilinear incision was made over the greater trochanter a posterior approach the hip was taken. The femoral head is dislocated and the femoral neck transected using an oscillating saw. Attention was next turned to the acetabulum. Soft tissues cleared off the acetabulum using electrocautery. The acetabulum was then prepared using a series of hemispherical reamers until a 59 millimeters reamer is seated. Subsequently a 60 millimeters [place] titanium revision hemispherical shell is impacted into position and secured with one screw. A standard flat V6 millimeters cross-link liner is impacted into the shell. The acetabulum is aggressively tested with a Ki and appears to be solidly fixed. The wound is irrigated with pulsed lavage. A trial reduction was again performed with a 36 mm head and a +10 neck. Findings as previously. The hip was dislocated one last time and the final chrome-cobalt head is impacted onto the trunnion. The hip was reduced. Wound is copiously irrigated with pulsed lavage. Sent closed in layers using interrupted Vicryl followed by hussein. A sterile dressing is applied and the patient's returned to recovery room in satisfactory patient.
[2017-03-15] MEDS ORDERED: ONDANSETRON 4 MG TAB.RAPDIS PO PRN (10:22)
[2017-03-15] MEDS ORDERED: ONDANSETRON HCL INJ/PF 4 MG/2 ML SDV IV PRN (10:22)
[2017-03-15] MEDS ORDERED: MAG HYDROX/AL HYDROX/SIMETH SUSP 30 ML UDCUP PO PRN (10:22)
[2017-03-15] MEDS ORDERED: RINGERS SOLUTION,LACTATED 1,000 ML IV PRN (10:22)
[2017-03-15] MEDS ORDERED: ACETAMINOPHEN 325 MG TABLET PO PRN (10:22)
--- NOTE | 2017-03-15 10:44 | RADIOLOGY REPORT (SQ) ---
EXAM DESCRIPTION: NO CHG FLUORO; HIP UNILATERAL-1 VIEW COMPLETED DATE/TIME: 03/15/2017 10:22 am REASON FOR STUDY: LT HIP HARDWARE PLCMT CHECK ASST WITH C ARM IN OR T84.398A [facility] COMPL OF OTH BONE DEVICES, IMPLANTS AND GRAFTS COMPARISON: None. FLUOROSCOPY TIME: 1 images saved to PACS. Fluoro time: 0 minutes 1 Images saved to PACS TECHNIQUE: Intra-operative images acquired during surgical procedure to evaluate progress. NUMBER OF IMAGES: 1 LIMITATIONS: None. FINDINGS: Total hip replacement. IMPRESSION: IMAGE(S) OBTAINED DURING PROCEDURE. COMMENT: Quality ID 145: Final reports for procedures using fluoroscopy that document radiation exp osure indices, or exposure time and number of fluorographic images (if radiation exposure indices are not available) Please consult full operative report of the attending physician for description of the procedure. TECHNICAL DOCUMENTATION: JOB ID: [id number] [employer]- All Rights Reserved
--- NOTE | 2017-03-15 10:44 | RADIOLOGY REPORT (SQ) ---
EXAM DESCRIPTION: NO CHG FLUORO; HIP UNILATERAL-1 VIEW COMPLETED DATE/TIME: 03/15/2017 10:22 am REASON FOR STUDY: LT HIP HARDWARE PLCMT CHECK ASST WITH C ARM IN OR T84.398A [facility] COMPL OF OTH BONE DEVICES, IMPLANTS AND GRAFTS COMPARISON: None. FLUOROSCOPY TIME: 1 images saved to PACS. Fluoro time: 0 minutes 1 Images saved to PACS TECHNIQUE: Intra-operative images acquired during surgical procedure to evaluate progress. NUMBER OF IMAGES: 1 LIMITATIONS: None. FINDINGS: Total hip replacement. IMPRESSION: IMAGE(S) OBTAINED DURING PROCEDURE. COMMENT: Quality ID 145: Final reports for procedures using fluoroscopy that document radiation exp osure indices, or exposure time and number of fluorographic images (if radiation exposure indices are not available) Please consult full operative report of the attending physician for description of the procedure. TECHNICAL DOCUMENTATION: JOB ID: [id number] [employer]- All Rights Reserved
--- NOTE | 2017-03-15 11:32 | RADIOLOGY REPORT (SQ) ---
EXAM DESCRIPTION: PELVIS AP COMPLETED DATE/TIME: 03/15/2017 11:11 am REASON FOR STUDY: Post Op Long Cassette in PACU T84.398A [facility] COMPL OF OTH BONE DEVICES, IMPLANTS AND GRAFTS COMPARISON: Intraoperative imaging NUMBER OF VIEWS: One view(s). TECHNIQUE: Digital radiographic images of the left hip post-procedure. LIMITATIONS: None. FINDINGS: BONES: No worrisome or unexpected findings post-procedure. DEVICE: Total hip replacement. Components of the device in appropriate location. SOFT TISSUES: No worrisome findings. Expected postoperative soft tissue changes. IMPRESSION: SATISFACTORY POSTOPERATIVE LEFT HIP. TECHNICAL DOCUMENTATION: JOB ID: [id number] [employer]- All Rights Reserved
[2017-03-15] MEDS: MORPHINE SULFATE 10 MG/ML INJ IV PRN ×3 (14:45→19:32)
[2017-03-15] MEDS ORDERED: INFLUENZA ADLT QUAD (36MOS+) 2017-18 VAC 0.5 ML SYR IM PRN (14:46)
[2017-03-15] MEDS ORDERED: DOCUSATE SODIUM 100 MG CAPSULE PO ONE (16:00)
[2017-03-15] MEDS ORDERED: ACETAMINOPHEN 100 ML IV ONE (16:22)
[2017-03-15] MEDS: IBUPROFEN 800 MG in NORMAL SALINE 250 ML IV SCH (17:04)
[2017-03-15] MEDS ORDERED: METOPROLOL TARTRATE 25 MG TABLET PO SCH (18:00)
[2017-03-15] MEDS ORDERED: PREGABALIN 75 MG CAPSULE PO SCH (18:00)
[2017-03-15] MEDS: OXYCODONE HCL IR 5 MG TABLET PO PRN (20:49)
[2017-03-15] MEDS: METOPROLOL TARTRATE 25 MG TABLET PO SCH (22:09)
[2017-03-15] MEDS: OXYCODONE HCL SR 10 MG TABLET PO SCH (22:10)
[2017-03-15] MEDS ORDERED: VANCOMYCIN HCL 1,000 MG in DEXTROSE 5%-WATER 250 ML IV ONE (22:22)
[2017-03-16] MEDS: MORPHINE SULFATE 10 MG/ML INJ IV PRN (01:17)
[2017-03-16] MEDS: ZOLPIDEM TARTRATE 5 MG TABLET PO PRN ×2 (01:17→22:44)
[2017-03-16] MEDS: IBUPROFEN 800 MG in NORMAL SALINE 250 ML IV SCH ×3 (01:17→18:27)
[2017-03-16] MEDS: OXYCODONE HCL IR 5 MG TABLET PO PRN ×2 (05:33→19:42)
[2017-03-16] MEDS: LANSOPRAZOLE 30 MG TAB.RAP.DR PO SCH (05:33)
[2017-03-16 05:43] LABS: HEMATOCRIT 40.1 % (37.9-51.0); HEMOGLOBIN 13.7 g/dL (13.5-17.0); MEAN CORPUSCULAR HEMOGLOBIN 28.5 pg (27.0-33.4); MEAN CORPUSCULAR HGB CONC 34.1 g/dL (32.0-36.0); MEAN CORPUSCULAR VOLUME 84 fl (80-97); PLATELET COUNT 235 10^3/uL (150-450); RED BLOOD COUNT 4.79 10^6/uL (4.35-5.55); RED CELL DISTRIBUTION WIDTH 14.7 % (11.5-14.0); WHITE BLOOD COUNT 7.2 10^3/uL (4.0-10.5)
[2017-03-16 06:05] LABS: ANION GAP 9 (5-19); BLOOD UREA NITROGEN 5 mg/dL (7-20); CALCIUM 8.6 mg/dL (8.4-10.2); CARBON DIOXIDE 27 mmol/L (22-30); CHLORIDE 103 mmol/L (98-107); GLUCOSE 104 mg/dL (75-110); POTASSIUM 3.3 mmol/L (3.6-5.0); SODIUM 139.2 mmol/L (137-145)
--- NOTE | 2017-03-16 06:44 | PDOC PROGRESS REPORT ---
Subjective Progress Note for:: 03/16/17 Subjective:: 46-year-old -Italian male 1 day status post total left hip arthroplasty revision. Patient lying recumbent in hospital bed this morning and is very talkative. Patient reports that he is eager to get up yet has made slow progress with physical therapy. Patient also notes he does not desires to continue taking Lyrica. Patient was reassured that his Lyrica could be discontinued. Reason For Visit: T84.398A [facility] COMPL OF OTH BONE DEVICES, IMPLANTS Physical Exam Vital Signs: Temp Pulse Resp BP Pulse Ox 37.3 C 81 16 133/80 H 97 03/15/17 23:49 03/15/17 23:49 03/15/17 23:49 03/15/17 23:49 03/15/17 23:49 Intake & Output 03/14/17 03/15/17 03/16/17 06:59 06:59 06:59 Intake Total 7548 Output Total 4200 Balance 3348 Weight 124.7 kg General appearance: PRESENT: no acute distress, well-developed, well-nourished Head exam: PRESENT: atraumatic, normocephalic Respiratory exam: PRESENT: unlabored Pulses: PRESENT: normal dorsalis pedis pul, +2 pedal pulses bilateral Vascular exam: PRESENT: normal capillary refill Additional comments: Patient lying recumbent in hospital bed with bilateral lower extremities in full extension. He has minimal pedal edema and brisk capillary refill to toes on bilateral lower extremities. He is nontender to palpation. His OpSite dressings are clean dry and intact and these are left in place. His sensorimotor functions are intact leg lengths are equal and his distal neurovascular exam is intact. Musculoskeletal exam: PRESENT: ambulatory Additional comments: Patient makes slow progress with physical therapy only ambulating 30 feet. He was encouraged to make further progress of physical therapy today as they will return and work on further distance of ambulation and increase strength and range of motion of left lower extremity. Neurological exam: PRESENT: alert, awake, oriented to person, oriented to place , oriented to time, oriented to situation, CN II-XII grossly intact. ABSENT: motor sensory deficit Psychiatric exam: PRESENT: appropriate affect, normal mood. ABSENT: homicidal ideation, suicidal ideation Skin exam: PRESENT: dry, intact, warm. ABSENT: cyanosis, rash Results Laboratory Results: 03/16/17 05:26 03/16/17 05:26 03/15/17 03/16/17 03/16/17 07:16 05:26 05:26 WBC 7.2 RBC 4.79 Hgb 13.7 Hct 40.1 MCV 84 MCH 28.5 MCHC 34.1 RDW 14.7 H Plt Count 235 Sodium 139.2 Potassium 3.3 L Chloride 103 Carbon Dioxide 27 Anion Gap 9 BUN 5 L Creatinine 0.70 Est GFR ( Amer) > 60 Est GFR (Non-Af Amer) > 60 Glucose 104 Calcium 8.6 Blood Type B POSITIVE Antibody Screen NEGATIVE Impressions: Fluoroscopy 03/15/17 00:00 IMPRESSION: IMAGE(S) OBTAINED DURING PROCEDURE. Hip X-Ray 03/15/17 00:00 IMPRESSION: IMAGE(S) OBTAINED DURING PROCEDURE. Pelvis X-Ray 03/15/17 10:24 IMPRESSION: SATISFACTORY POSTOPERATIVE LEFT HIP. Assessment & Plan - Diagnosis (1) Mechanical failure of prosthetic joint Qualifiers: Encounter type: subsequent encounter Qualified Code(s): T84.019D - Broken internal joint prosthesis, unspecified site, subsequent encounter Is this a current diagnosis for this admission?: Yes - Plan Summary Plan Summary: 46-year-old -Italian male 1 day status post total left hip arthroplasty revision. Patient makes slow progress with physical therapy only ambulating 30 feet independently. He was encouraged to increase this distance today. He will continue to work with physical therapy throughout his stay in the hospital to increase strength range of motion of left lower extremity. As patient is no longer desires to continue taking Lyrica this will be discontinued. Patient will likely be discharged to a [place] [facility] facility in order to facilitate best outcome for this surgery. We will plan for this discharge likely on of this week.
[2017-03-16] MEDS: MORPHINE SULFATE 10 MG/ML INJ IM PRN ×3 (08:47→18:28)
[2017-03-16] MEDS: ASPIRIN 81 MG TABLET, ENT COATED PO SCH (10:26)
[2017-03-16] MEDS: DOCUSATE SODIUM 100 MG CAPSULE PO SCH (10:26)
[2017-03-16] MEDS: OXYCODONE HCL SR 10 MG TABLET PO SCH ×2 (10:27→21:31)
[2017-03-16] MEDS: METOPROLOL TARTRATE 25 MG TABLET PO SCH ×2 (10:29→21:31)
[2017-03-17] MEDS: IBUPROFEN 800 MG in NORMAL SALINE 250 ML IV SCH ×2 (01:48→10:00)
[2017-03-17] MEDS: LANSOPRAZOLE 30 MG TAB.RAP.DR PO SCH (05:14)
[2017-03-17 06:39] LABS: HEMATOCRIT 36.1 % (37.9-51.0); HEMOGLOBIN 12.1 g/dL (13.5-17.0); MEAN CORPUSCULAR HGB CONC 33.6 g/dL (32.0-36.0); MEAN CORPUSCULAR VOLUME 84 fl (80-97); PLATELET COUNT 215 10^3/uL (150-450); RED BLOOD COUNT 4.33 10^6/uL (4.35-5.55); RED CELL DISTRIBUTION WIDTH 14.7 % (11.5-14.0); WHITE BLOOD COUNT 10.2 10^3/uL (4.0-10.5)
--- NOTE | 2017-03-17 07:12 | PDOC PROGRESS REPORT ---
Subjective Progress Note for:: 03/17/17 Subjective:: Patient lying recumbent in hospital bed with lower extremity abduction pillow in place between legs. Patient reports his dressing had to be reinforced yesterday as there was copious amounts of drainage otherwise patient experiences much less pain than preoperatively and is pleased with his progress with physical therapy. Reason For Visit: T84.398A [facility] COMPL OF OTH BONE DEVICES, IMPLANTS Physical Exam Vital Signs: Temp Pulse Resp BP Pulse Ox 36.6 C 83 18 125/82 95 03/17/17 00:00 03/17/17 00:00 03/17/17 00:00 03/17/17 00:00 03/17/17 00:00 Intake & Output 03/16/17 03/17/17 03/18/17 06:59 06:59 06:59 Intake Total 7868 1486 Output Total 4875 550 Balance 2993 936 Weight 124.7 kg 124.7 kg General appearance: PRESENT: no acute distress, well-developed, well-nourished Head exam: PRESENT: atraumatic, normocephalic Respiratory exam: PRESENT: unlabored Pulses: PRESENT: normal dorsalis pedis pul, +2 pedal pulses bilateral Additional comments: Patient lying recumbent in hospital bed with lower extremity abduction pillow placed between lower extremities. This pillow was removed and patient's OpSite dressing is saturated with leon blood which has been reinforced with ABD pads. These dressings are removed and the wound is cleaned with hydrogen peroxide. A new dressing is placed and this is clean dry and intact. Patient has minimal pedal edema and brisk capillary refill to toes of bilateral lower extremities. He is somewhat tender to palpation around wound site. His leg lengths are equal and his distal neurovascular exam is intact. Musculoskeletal exam: PRESENT: ambulatory Additional comments: Patient makes progress with physical therapy ambulating 100 feet independently. He will continue to work with physical therapy throughout his stay in the hospital to improve distance of ambulation and strength range of motion of left lower extremity. Neurological exam: PRESENT: alert, awake, oriented to person, oriented to place , oriented to time, oriented to situation, CN II-XII grossly intact. ABSENT: motor sensory deficit Psychiatric exam: PRESENT: appropriate affect, normal mood. ABSENT: homicidal ideation, suicidal ideation Skin exam: PRESENT: dry, intact, warm. ABSENT: cyanosis, rash Results Laboratory Results: 03/17/17 06:10 03/16/17 05:26 03/17/17 06:10 WBC 10.2 RBC 4.33 L Hgb 12.1 L Hct 36.1 L MCV 84 MCH 28.0 MCHC 33.6 RDW 14.7 H Plt Count 215 Impressions: Fluoroscopy 03/15/17 00:00 IMPRESSION: IMAGE(S) OBTAINED DURING PROCEDURE. Hip X-Ray 03/15/17 00:00 IMPRESSION: IMAGE(S) OBTAINED DURING PROCEDURE. Pelvis X-Ray 03/15/17 10:24 IMPRESSION: SATISFACTORY POSTOPERATIVE LEFT HIP. Assessment & Plan - Diagnosis (1) Mechanical failure of prosthetic joint Qualifiers: Encounter type: subsequent encounter Qualified Code(s): T84.019D - Broken internal joint prosthesis, unspecified site, subsequent encounter Is this a current diagnosis for this admission?: Yes - Plan Summary Plan Summary: 46-year-old -[place] male 2 days status post total left hip arthroplasty revision. Patient makes great progress of physical therapy ambulating 100 feet independently. He will continue to work with physical therapy throughout his stay in the hospital to improve distance of ambulation. His OpSite dressing was changed this morning and is clean dry and intact. Patient has decided to go to an acute rehab facility upon discharge. Therefore he will be discharged to care home facility tomorrow. He will then follow [facility] with [facility] for surgery 2 weeks postoperatively.
[2017-03-17] MEDS: OXYCODONE HCL IR 5 MG TABLET PO PRN ×3 (07:46→20:16)
[2017-03-17] MEDS: METOPROLOL TARTRATE 25 MG TABLET PO SCH ×2 (10:00→21:38)
[2017-03-17] MEDS: DOCUSATE SODIUM 100 MG CAPSULE PO SCH (10:00)
[2017-03-17] MEDS: OXYCODONE HCL SR 10 MG TABLET PO SCH (10:01)
[2017-03-17] MEDS: ASPIRIN 81 MG TABLET, ENT COATED PO SCH (10:01)
[2017-03-17] MEDS: ZOLPIDEM TARTRATE 5 MG TABLET PO PRN (21:38)
[2017-03-18] MEDS: LANSOPRAZOLE 30 MG TAB.RAP.DR PO SCH (05:24)
--- NOTE | 2017-03-18 06:48 | PDOC TRANSFER SUMMARY ---
General - Admit/Disc Date/PCP Admission Date/Primary Care Provider: 03/15/17 06:42 HERMELINDA MOSHER MD Discharge Date: 03/18/17 - Discharge Diagnosis (1) Mechanical failure of prosthetic joint Is this a current diagnosis for this admission?: Yes - Additional Information Resuscitation Status: Full Code Discharge Diet: As Tolerated, Regular Discharge Activity: Balance Activity w/Rest, No Driving, No tub bath Home Medications: Metoprolol Tartrate 25 mg PO BID 03/11/17 Aspirin [Ecotrin 81 mg EC Tablet] 81 mg PO DAILY tabec 03/18/17 Oxycodone HCl [Oxy-Ir 5 mg Tablet] 5 mg PO Q6HP PRN tablet 03/18/17 Sulfamethoxazole/Trimethoprim [Septra-Ds 800-160 mg Tablet] 1 tab PO BID tablet 03/18/17 History of Present Illness Admission Date/PCP: 03/15/17 06:42 HERMELINDA MOSHER MD History of Present Illness: JASKARAN IRVIN is a 46 year old male with 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 Patient had postoperative pain and studies indicated the presence of a lucency around the acetabular component. Patient is admitted for an acetabular revision. Hospital Course Hospital Course: She is admitted through the operating where he undergoes uncomplicated left hip revision arthroplasty. Is returned to floor in satisfactory vision. Seen by physical therapy and begun on a weightbearing as tolerated toward program. Dressing becomes saturated on first postoperative day and is changed. The second postoperative day intraoperative cultures demonstrated growth of methicillin sensitive staph aureus. This is difficult to reconcile with a pre- operative sedimentation rate of 5. Regardless the patient started on oral Septra as a suppressive therapy. Physical Exam Vital Signs: Temp Pulse Resp BP Pulse Ox 36.8 C 74 20 145/67 H 96 03/18/17 00:35 03/18/17 00:35 03/18/17 00:35 03/18/17 00:35 03/18/17 00:35 Intake & Output 03/16/17 03/17/17 03/18/17 06:59 06:59 06:59 Intake Total 2199 7205 2017 Output Total 5600 557 Balance 2993 936 2017 Weight 124.7 kg 124.7 kg General appearance: PRESENT: obese Head exam: PRESENT: normocephalic Respiratory exam: PRESENT: unlabored Cardiovascular exam: PRESENT: RRR Pulses: PRESENT: +1 pedal pulses bilateral GI/Abdominal exam: PRESENT: soft Rectal exam: PRESENT: deferred Musculoskeletal exam: PRESENT: other - Left hip dressing is changed. Wound is well approximated with hussein. There is scant serous drainage. Leg lengths are equal. Distal neurovascular examination is intact. Neurological exam: PRESENT: alert, awake, oriented to person, oriented to place , oriented to time, oriented to situation. ABSENT: motor sensory deficit Psychiatric exam: PRESENT: appropriate affect, normal mood. ABSENT: homicidal ideation, suicidal ideation Skin exam: PRESENT: dry, intact, warm. ABSENT: cyanosis, rash Results Laboratory Results: 03/17/17 06:10 03/16/17 05:26 03/17/17 06:10 WBC 10.2 RBC 4.33 L Hgb 12.1 L Hct 36.1 L MCV 84 MCH 28.0 MCHC 33.6 RDW 14.7 H Plt Count 215 03/15/17 08:59 Hip - Left Gram Stain - Final 03/15/17 08:59 Hip - Left Wound Culture - Final Staphylococcus Aureus No Anaerobic Organisms 03/15/17 08:57 Hip - Left Gram Stain - Final Impressions: Fluoroscopy 03/15/17 00:00 IMPRESSION: IMAGE(S) OBTAINED DURING PROCEDURE. Hip X-Ray 03/15/17 00:00 IMPRESSION: IMAGE(S) OBTAINED DURING PROCEDURE. Pelvis X-Ray 03/15/17 10:24 IMPRESSION: SATISFACTORY POSTOPERATIVE LEFT HIP. Status: Imported from PACS Transfer Plan - Disposition Transfer Plan: Patient to be transferred to a nursing home facility [facility]. There have receive ongoing physical therapy for weightbearing as tolerated ambulation. long term for wound care. Dressing can be changed as needed. Follow-up with Dr. Dawson and [facility] for surgery in 2 weeks for staple removal. - Time Spent with Patient Time spent with patient: Less than 30 Minutes
[2017-03-18] MEDS: OXYCODONE HCL IR 5 MG TABLET PO PRN (06:54)
[2017-03-18 07:07] LABS: HEMATOCRIT 35.8 % (37.9-51.0); MEAN CORPUSCULAR HEMOGLOBIN 28.1 pg (27.0-33.4); MEAN CORPUSCULAR HGB CONC 33.6 g/dL (32.0-36.0); MEAN CORPUSCULAR VOLUME 84 fl (80-97); PLATELET COUNT 278 10^3/uL (150-450); RED BLOOD COUNT 4.28 10^6/uL (4.35-5.55); RED CELL DISTRIBUTION WIDTH 14.6 % (11.5-14.0); WHITE BLOOD COUNT 8.6 10^3/uL (4.0-10.5)
[2017-03-18 07:56] VITALS: BP 136/82
[2017-03-18] MEDS: ASPIRIN 81 MG TABLET, ENT COATED PO SCH (09:23)
[2017-03-18] MEDS: METOPROLOL TARTRATE 25 MG TABLET PO SCH (09:23)
[2017-03-18] MEDS: DOCUSATE SODIUM 100 MG CAPSULE PO SCH (09:23)
[2017-03-18] MEDS ORDERED: SULFAMETHOXAZOLE/TRIMETHOPRIM 800-160 MG TABLET PO SCH (10:00)
== END 2017-03-18 10:26 | DRG 467 ==
LOC: INOR 06:42 → 4S 11:28
PROVIDERS: ADMIT Orthopaedic Surgery; ATTEND Orthopaedic Surgery
PROC: 0SPB09Z Removal of Liner from Left Hip Joint, Open Approach (ICD-10-PCS; 2017-03-15)
PROC: 0SRE00A Replacement of Left Hip Joint, Acetabular Surface with Polyethylene Synthetic Substitute, Uncemented, Open Approach (ICD-10-PCS; 2017-03-15)
PROC: 0SUE09Z Supplement Left Hip Joint, Acetabular Surface with Liner, Open Approach (ICD-10-PCS; principal; 2017-03-15 08:45)
PROC: 3E0234Z Introduction of Serum, Toxoid and Vaccine into Muscle, Percutaneous Approach (ICD-10-PCS; 2017-03-18)
DX: T84.031A Mechanical loosening of internal left hip prosthetic joint, initial encounter (principal); Z68.41 Body mass index [BMI] 40.0-44.9, adult; E66.9 Obesity, unspecified; A49.01 Methicillin susceptible Staphylococcus aureus infection, unspecified site; M25.552 Pain in left hip; Z96.642 Presence of left artificial hip joint; Z79.82 Long term (current) use of aspirin; Z23 Encounter for immunization
CPT/HCPCS: 01215; 36415; 72170; 73501; 80048; 85027; 86850; 86900; 86901; 87070; 87075; 87077; 87186; 87205; 88304; 88311; 90686; 94799; C1713; C9290; J0690; J1170; J1200; J1741; J2250; J2270; J2405; J2704; J3010; J3370; J3490; J7050; J7060; J7120

== ENCOUNTER 2017-05-06 11:51 | Emergency (ER) | payer OTHER ==
[2017-05-06 12:15] VITALS: BP 140/94
[2017-05-06] MEDS ORDERED: RIVAROXABAN 15 MG TABLET PO ONE (12:35)
--- NOTE | 2017-05-06 12:38 | ER Document Report ---
ED General - General Chief Complaint: Leg Pain Stated Complaint: POSSIBLE BLOOD CLOT Time Seen by Provider: 05/06/17 12:26 Mode of Arrival: Wheelchair Information source: Patient Notes: 46 yr old male who had hip surgery in february presents with complaints of left leg swelling. pt had outpatient u/s performed consistent with dvt in the left popliteal . pt denies any sob, chest pain. pt was on lovenox in february during rehab due ot prolonged stasis but notes he has been moving recently. TRAVEL OUTSIDE OF THE [place] IN LAST 30 DAYS: No - HPI Onset: Last week Onset/Duration: Persistent Quality of pain: Achy Severity: Mild Pain Level: 1 Associated symptoms: Leg swelling Exacerbated by: Movement Relieved by: Denies Similar symptoms previously: No Recently seen / treated by doctor: Yes - Related Data Allergies/Adverse Reactions: acetaminophen [From Tylenol] Adverse Reaction (Verified 12/27/16 12:21) Past Medical History - Social History Smoking Status: Current Every Day Smoker Cigarette use (# per day): Yes Chew tobacco use (# tins/day): No Smoking Education Provided: No Frequency of alcohol use: Social Drug Abuse: None Family History: Reviewed & Not Pertinent Patient has suicidal ideation: No Patient has homicidal ideation: No - Past Medical History Cardiac Medical History: Reports: Hx Hypertension Denies: Hx Atrial Fibrillation, Hx Congestive Heart Failure, Hx Coronary Artery Disease, Hx Heart Attack, Hx Hypercholesterolemia, Hx Peripheral Vascular Disease, Hx Heart Murmur Renal/ Medical History: Denies: Hx Peritoneal Dialysis Musculoskeltal Medical History: Reports Hx Arthritis, Denies Hx Fibromyalgia, Denies Hx Muscular Dystrophy, Reports Hx Musculoskeletal Trauma - LEFT HIP Traumatic Medical History: Denies: Hx Fractures Past Surgical History: Reports: Hx Orthopedic Surgery - left hip. Denies: Hx Appendectomy, Hx Bowel Surgery, Hx Cholecystectomy, Hx Coronary Artery Bypass Graft, Hx Gastric Bypass Surgery, Hx Herniorrhaphy, Hx Pacemaker, Hx Tonsillectomy - Immunizations Immunizations up to date: Yes Hx Diphtheria, Pertussis, Tetanus Vaccination: Yes Review of Systems - Review of Systems Notes: REVIEW OF SYSTEMS: CONSTITUTIONAL : Denies fever, chills, or sweats. Denies recent illness. EENT: Denies eye, ear, throat, or mouth pain or symptoms. Denies nasal or sinus congestion or discharge. Denies throat, tongue, or mouth swelling or difficulty swallowing. CARDIOVASCULAR: Denies chest pain. Denies palpitations or racing or irregular heart beat. Left ankle edema RESPIRATORY: Denies cough, cold, or chest congestion. Denies shortness of breath, difficulty breathing, or wheezing. GASTROINTESTINAL: Denies abdominal pain or distention. Denies nausea, vomiting , or diarrhea. Denies blood in vomitus, stools, or per rectum. Denies black, tarry stools. Denies constipation. GENITOURINARY: Denies difficulty urinating, painful urination, burning, frequency, blood in urine, or discharge. MUSCULOSKELETAL: Left leg swelling SKIN: Denies rash, lesions or sores. HEMATOLOGIC : Denies easy bruising or bleeding. LYMPHATIC: Denies swollen, enlarged glands. NEUROLOGICAL: Denies confusion or altered mental status. Denies passing out or loss of consciousness. Denies dizziness or lightheadedness. Denies headache. Denies weakness or paralysis or loss of use of either side. Denies problems with gait or speech. Denies sensory loss, numbness, or tingling. Denies seizures. PSYCHIATRIC: Denies anxiety or stress. Denies depression, suicidal ideation, or homicidal ideation. ALL OTHER SYSTEMS REVIEWED AND NEGATIVE. Dictation was performed using [employer] voice recognition software PHYSICAL EXAMINATION: GENERAL: Well-appearing, well-nourished and in no acute distress. HEAD: Atraumatic, normocephalic. EYES: Pupils equal round and reactive to light, extraocular movements intact, sclera anicteric, conjunctiva are normal. ENT: Nares patent, oropharynx clear without exudates. Moist mucous membranes. NECK: Normal range of motion, supple without lymphadenopathy LUNGS: Breath sounds clear to auscultation bilaterally and equal. No wheezes rales or rhonchi. HEART: Regular rate and rhythm without murmurs ABDOMEN: Soft, nontender, nondistended abdomen. No guarding, no rebound. No masses appreciated. Musculoskeletal: Left leg is edematous with +1 pitting edema NEUROLOGICAL: Cranial nerves grossly intact. Normal speech, normal gait. Normal sensory, motor exams PSYCH: Normal mood, normal affect. SKIN: Warm, Dry, normal turgor, no rashes or lesions noted. Physical Exam - Vital signs Vitals: Temp Pulse Resp BP Pulse Ox 97.7 F 79 16 140/94 H 98 05/06/17 12:13 05/06/17 12:13 05/06/17 12:13 05/06/17 12:13 05/06/17 12:13 Course - Re-evaluation Re-evalutation: 05/06/17 12:48 Patient will be treated with Xarelto, I did give him my card and explained that if his insurance does not cover it we will have to switch to Lovenox and Coumadin which he is taking previously a dose of Xarelto was provided here very strict return precautions have been provided After performing a Medical Screening Examination, I estimate there is LOW risk for RUPTURED ESOPHAGUS, PNEUMOTHORAX, PULMONARY EMBOLISM, ACUTE CORONARY SYNDROME, OR THORACIC AORTIC DISSECTION, thus I consider the discharge disposition reasonable. I have reevaluated this patient multiple times and no significant life threatening changes are noted. The patient and I have discussed the diagnosis and risks, and we agree with discharging home with close follow-up. We also discussed returning to the Emergency Department immediately if new or worsening symptoms occur. We have discussed the symptoms which are most concerning (e.g., bloody sputum, worsening pain or shortness of breath) that necessitate immediate return. - Vital Signs Vital signs: Temp Pulse Resp BP Pulse Ox 97.7 F 79 16 140/94 H 98 05/06/17 12:13 05/06/17 12:13 05/06/17 12:13 05/06/17 12:13 05/06/17 12:13 - Diagnostic Test Radiology reviewed: Image reviewed, Reports reviewed - Ultrasound reviewed report noted to have DVT from popliteal to superficial femoral Discharge - Discharge Clinical Impression: DVT (deep venous thrombosis) Qualifiers: DVT location: lower extremity Affected thrombotic vein of extremity: popliteal Chronicity: acute Laterality: left Qualified Code(s): I82.432 - Acute embolism and thrombosis of left popliteal vein Condition: Stable Disposition: HOME, SELF-CARE Instructions: DVT Outpatient Treatment ([facility]) Additional Instructions: You are being a given a prescription for 21 days, you must take these as prescribed, you must follow-up with primary care physician for continuation of the Xarelto Return immediately if there is any chest pain shortness of breath difficulty breathing or any other concerns Prescriptions: Rivaroxaban [Xarelto 15 mg Tablet] 15 mg PO BID #41 tablet Referrals: JUAN PFEIFFER MD [ACTIVE STAFF] - Follow up as needed
== END 2017-05-06 12:49 | disposition home or self-care (01) ==
LOC: ER 11:51
DX: I82.432 Acute embolism and thrombosis of left popliteal vein (principal); M79.605 Pain in left leg; R22.42 Localized swelling, mass and lump, left lower limb; F17.210 Nicotine dependence, cigarettes, uncomplicated; I10 Essential (primary) hypertension; Z79.02 Long term (current) use of antithrombotics/antiplatelets; Z88.6 Allergy status to analgesic agent
CPT/HCPCS: 99283

== ENCOUNTER → 2017-05-06 | Outpatient (CLI) | payer OTHER ==
--- NOTE | 2017-05-06 12:16 | RADIOLOGY REPORT (SQ) ---
EXAM DESCRIPTION: VENOUS UNILATERAL LOWER COMPLETED DATE/TIME: 05/06/2017 11:55 am REASON FOR STUDY: LLE PAIN M25.552 PAIN IN LEFT HIP COMPARISON: None. TECHNIQUE: Dynamic and static ordonez scale and color images acquired of the left leg venous system. Se lected spectral images acquired with additional compression and augmentation maneuvers. The contralat eral common femoral vein and saphenofemoral junction were also imaged. Images stored on PACS. LIMITATIONS: None. FINDINGS: COMMON FEMORAL: Normal phasicity, compression and augmentation. No visualized echogenic ma terial on ordonez scale. No defects on color images. FEMORAL: Thrombus is present. Vessel does not compress. POPLITEAL: Thrombus is present. No compression. CALF VESSELS: Normal compression, augmentation. No visualized echogenic material on ordonez scale. No de fects on color images. GSV and SSV: Normal compression, augmentation. No visualized echogenic material on ordonez scale. No def ects on color images. ANY DEEP VENOUS INSUFFICIENCY: Not evaluated. ANY EVIDENCE OF POPLITEAL CYST: No. OTHER: No other significant finding. CONTRALATERAL COMMON FEMORAL VEIN AND SAPHENOFEMORAL JUNCTION: Normal phasicity, compression and augmentation. No visualized echogenic material on ordonez scale. No de fects on color images. IMPRESSION: DVT is present from the popliteal vein through the superficial femoral vein. TECHNICAL DOCUMENTATION: JOB ID: [id number] [employer]- All Rights Reserved Reading location - IP/workstation name: [email or web address]
== END ==
LOC: SP 11:03
PROVIDERS: ATTEND Physical Medicine & Rehabilitation
DX: M25.552 Pain in left hip (principal); I82.412 Acute embolism and thrombosis of left femoral vein; I82.432 Acute embolism and thrombosis of left popliteal vein
CPT/HCPCS: 93971

== ENCOUNTER → 2017-06-07 | Day surgery (SDC) | payer OTHER ==
[~2017-06-07] MED LIST changes: -BUPIVACAINE INJ/PF LIPOSOME/PF 266 MG/20 ML SDV IJ PRN; -BUPIVACAINE INJ/PF LIPOSOME/PF 266 MG/20 ML SDV ONE; -CEFAZOLIN INJ 1 GM VIAL IV PRN; -IBUPROFEN 800 MG/NS 250 ML IV PRN; -LACTATED RINGERS 1000 ML IV PRN; -LANSOPRAZOLE 15 MG TAB.RAP.DR PO PRN; -LIDOCAINE 0.5% INJ-PF (5 MG/ML) 50 ML SDV SUBCUT PRN; +LIDOCAINE 1% INJ-PF (10 MG/ML) 30 ML SDV ONE; -OXYCODONE HCL SR 10 MG TABLET PO PRN; -THROMBIN (BOVINE) 5000 UNIT EPITAXIS KIT ONE; -THROMBIN (BOVINE) TOPICAL 20000 UNIT VIAL ONE; -VANCOMYCIN HCL 1,000 MG in DEXTROSE 5%-WATER 250 ML IV PRN
--- NOTE | 2017-06-07 16:19 | RADIOLOGY REPORT (SQ) ---
EXAM DESCRIPTION: INJECT/ASPIR HIP/SHLDR/KNEE; FLUORO/NEEDLE PLACEMENT COMPLETED DATE/TIME: 06/07/2017 4:04 pm REASON FOR STUDY: INFECTION/INFLAMMATORY REACTION DUE TO INTERNAL LEFT HIP PROSTHESIS M25.50 PAIN I N UNSPECIFIED JOINT COMPARISON: None. FLUOROSCOPY TIME: 30 seconds 1 images saved to PACS. LIMITATIONS: None. PROCEDURE: Using local anesthesia and sterile technique with fluoroscopic guidance, the needle was a dvanced into the left hip joint. Fluid aspiration was attempted on either side of the prosthesis. N o fluid could be aspirated. Sterile saline was injected with approximately 2.5 cc recovered and sent to the lab for testing. The needle was removed. There were no immediate complications. IMPRESSION: Left hip joint aspiration. Pathology pending. COMMENT: Patient medication list reviewed: Yes- Quality ID# [id number]:Eligible professional attests to doc umenting in the medical record they obtained, updated, or reviewed the patient's current medications. . Quality ID 145: Final reports for procedures using fluoroscopy that document radiation exposure tae federico, or exposure time and number of fluorographic images (if radiation exposure indices are not avail able) TECHNICAL DOCUMENTATION: JOB ID: [id number] [employer]- All Rights Reserved Reading location - IP/workstation name: [email or web address]
--- NOTE | 2017-06-07 16:19 | RADIOLOGY REPORT (SQ) ---
EXAM DESCRIPTION: INJECT/ASPIR HIP/SHLDR/KNEE; FLUORO/NEEDLE PLACEMENT COMPLETED DATE/TIME: 06/07/2017 4:04 pm REASON FOR STUDY: INFECTION/INFLAMMATORY REACTION DUE TO INTERNAL LEFT HIP PROSTHESIS M25.50 PAIN I N UNSPECIFIED JOINT COMPARISON: None. FLUOROSCOPY TIME: 30 seconds 1 images saved to PACS. LIMITATIONS: None. PROCEDURE: Using local anesthesia and sterile technique with fluoroscopic guidance, the needle was a dvanced into the left hip joint. Fluid aspiration was attempted on either side of the prosthesis. N o fluid could be aspirated. Sterile saline was injected with approximately 2.5 cc recovered and sent to the lab for testing. The needle was removed. There were no immediate complications. IMPRESSION: Left hip joint aspiration. Pathology pending. COMMENT: Patient medication list reviewed: Yes- Quality ID# [id number]:Eligible professional attests to doc umenting in the medical record they obtained, updated, or reviewed the patient's current medications. . Quality ID 145: Final reports for procedures using fluoroscopy that document radiation exposure tae federico, or exposure time and number of fluorographic images (if radiation exposure indices are not avail able) TECHNICAL DOCUMENTATION: JOB ID: [id number] [employer]- All Rights Reserved Reading location - IP/workstation name: [email or web address]
[2017-06-07 19:05] LABS: FLUID COLOR RED; FLUID TYPE SYNOVIAL
[2017-06-07 19:06] LABS: FLUID APPEARANCE CLOUDY; FLUID VISCOSITY LIQUID
== END ==
LOC: RAD 14:57
PROVIDERS: ATTEND Orthopaedic Surgery
DX: T84.52XA Infection and inflammatory reaction due to internal left hip prosthesis, initial encounter (principal); Y83.8 Other surgical procedures as the cause of abnormal reaction of the patient, or of later complication, without mention of misadventure at the time of the procedure; M25.50 Pain in unspecified joint
CPT/HCPCS: 87205; 87070; 89050; 87075; 87077; 87186; 20610; 77002; J3490

== ENCOUNTER → 2017-06-11 | Outpatient (CLI) | payer OTHER ==
[2017-06-11 09:55] LABS: HEMATOCRIT 44.1 % (37.9-51.0); HEMOGLOBIN 14.7 g/dL (13.5-17.0); MEAN CORPUSCULAR HEMOGLOBIN 28.6 pg (27.0-33.4); MEAN CORPUSCULAR HGB CONC 33.3 g/dL (32.0-36.0); MEAN CORPUSCULAR VOLUME 86 fl (80-97); PLATELET COUNT 405 10^3/uL (150-450); RED BLOOD COUNT 5.13 10^6/uL (4.35-5.55); WHITE BLOOD COUNT 8.3 10^3/uL (4.0-10.5)
[2017-06-11 10:49] LABS: ERYTHROCYTE SEDIMENTATION RATE 40 mm/hr (0-15)
== END ==
LOC: OD 08:57
PROVIDERS: ATTEND Orthopaedic Surgery
DX: T84.52XA Infection and inflammatory reaction due to internal left hip prosthesis, initial encounter (principal); M25.50 Pain in unspecified joint
CPT/HCPCS: 36415; 85027; 85652; 86140

== ENCOUNTER → 2017-09-07 | Outpatient (CLI) | payer OTHER ==
--- NOTE | 2017-09-07 17:06 | RADIOLOGY REPORT (SQ) ---
EXAM DESCRIPTION: VENOUS BILATERAL LOWER COMPLETED DATE/TIME: 09/07/2017 4:49 pm REASON FOR STUDY: BLE SWELLING R22.42 LOCALIZED SWELLING, MASS AND LUMP, LEFT LOWER LIMB R22.41 LO CALIZED SWELLING, MASS AND LUMP, RIGHT LOWER LIMB COMPARISON: None. TECHNIQUE: Dynamic and static ordonez scale and color images acquired of both lower extremity venous sy stems. Selected spectral images acquired with additional compression and augmentation maneuvers. Imag es stored on PACS. LIMITATIONS: None. FINDINGS: RIGHT LEG COMMON FEMORAL AND FEMORAL: Normal phasicity, compression and augmentation. No visualized echogenic m aterial on ordonez scale. No defects on color images. POPLITEAL: Normal compression and augmentation. No visualized echogenic material on ordonez scale. No de fects on color images. CALF VESSELS: Normal compression and augmentation. No visualized echogenic material on ordonez scale. No defects on color image. GSV AND SSV: Normal compression. No visualized echogenic material on ordonez scale. No defects on color images. ANY DEEP VENOUS INSUFFICIENCY: Not evaluated. ANY EVIDENCE OF POPLITEAL CYST: No. OTHER: No other significant finding. LEFT LEG COMMON FEMORAL AND FEMORAL: Intraluminal thrombus is identified in the mid and distal femoral vein. POPLITEAL: Intraluminal thrombus is identified in the popliteal vein. CALF VESSELS: Normal compression and augmentation. No visualized echogenic material on ordonez scale. No defects on color images. GSV AND SSV: Normal compression. No visualized echogenic material on ordonez scale. No defects on color images. ANY DEEP VENOUS INSUFFICIENCY: Not evaluated. ANY EVIDENCE POPLITEAL CYST: No. OTHER: No other significant finding. IMPRESSION: Findings consistent with deep venous thrombosis involving the femoral and popliteal vein s on the left as noted above. No other evidence for deep venous thrombosis is seen. TECHNICAL DOCUMENTATION: JOB ID: [id number] [employer]- All Rights Reserved Reading location - IP/workstation name: [email or web address] [id number]
== END ==
LOC: SP 14:05
PROVIDERS: ATTEND Orthopaedic Surgery
DX: R22.43 Localized swelling, mass and lump, lower limb, bilateral (principal)
CPT/HCPCS: 93970

== ENCOUNTER → 2017-09-08 | Day surgery (SDC) | payer OTHER ==
--- NOTE | 2017-09-08 15:30 | RADIOLOGY REPORT (SQ) ---
EXAM DESCRIPTION: INJECT/ASPIR HIP/SHLDR/KNEE COMPLETE DATE/TIME: 09/08/2017 3:18 pm REASON FOR STUDY: INFECT/INFLM REACTION DUE TO INTERNAL LEFT HIP PROSTH, INIT (T84.52XA) T84.50XD I NFECT/INFLM REACTION DUE TO UNSP INT JOINT PROSTH, T84.52XA INFECT/INFLM REACTION DUE TO INTERNAL LE FT HIP PROS FINDINGS: Please see combined report for performance of procedure and radiologic supervision and int erpretation. IMPRESSION: Please see combined report for performance of procedure and radiologic supervision and i nterpretation. Reading location - IP/workstation name: [email or web address]
--- NOTE | 2017-09-08 15:38 | RADIOLOGY REPORT (SQ) ---
EXAM DESCRIPTION: FLUORO/NEEDLE PLACEMENT COMPLETED DATE/TIME: 09/08/2017 3:18 pm REASON FOR STUDY: INFECT/INFLM REACTION DUE TO INTERNAL LEFT HIP PROSTH, INIT (T84.52XA) COMPARISON: None. TECHNIQUE: Using aseptic technique and fluoroscopic guided a 21 gauge needle was directed to the lev el of the left hip prosthesis LIMITATIONS: None. FINDINGS: Approximately 5.5 mL of fluid was aspirated and sent for pathologic evaluation. Patient t olerated procedure well without complication IMPRESSION: Left hip aspiration as noted above. TECHNICAL DOCUMENTATION: JOB ID: [id number] [employer]- All Rights Reserved Reading location - IP/workstation name: [email or web address]
[2017-09-08 15:45] LABS: ABSOLUTE BASOPHILS # (AUTO) 0.1 10^3/uL (0.0-0.2); ABSOLUTE EOSINOPHILS # (AUTO) 0.2 10^3/uL (0.0-0.6); ABSOLUTE LYMPHOCYTES (AUTO) 1.6 10^3/uL (0.5-4.7); ABSOLUTE MONOCYTES (AUTO) 0.8 10^3/uL (0.1-1.4); ABSOLUTE NEUT (AUTO) 3.5 10^3/uL (1.7-8.2); BASOPHILS % (AUTO) 1.8 % (0-2); EOSINOPHILS % (AUTO) 3.3 % (0-6); HEMOGLOBIN 14.2 g/dL (13.5-17.0); LYMPHOCYTES % (AUTO) 25.8 % (13-45); MEAN CORPUSCULAR HEMOGLOBIN 28.6 pg (27.0-33.4); MEAN CORPUSCULAR HGB CONC 33.1 g/dL (32.0-36.0); MEAN CORPUSCULAR VOLUME 86 fl (80-97); MONOCYTES % (AUTO) 12.7 % (3-13); PLATELET COUNT 350 10^3/uL (150-450); RED BLOOD COUNT 4.99 10^6/uL (4.35-5.55); RED CELL DISTRIBUTION WIDTH 14.7 % (11.5-14.0); SEGMENTED NEUTROPHILS % (AUTO) 56.4 % (42-78); TOTAL CELLS COUNTED % (AUTO) 100 %; WHITE BLOOD COUNT 6.2 10^3/uL (4.0-10.5)
[2017-09-08 16:20] LABS: ERYTHROCYTE SEDIMENTATION RATE 11 mm/hr (0-15)
== END ==
LOC: RAD 14:18
PROVIDERS: ATTEND Orthopaedic Surgery
DX: T84.50XD Infection and inflammatory reaction due to unspecified internal joint prosthesis, subsequent encounter (principal); T84.52XA Infection and inflammatory reaction due to internal left hip prosthesis, initial encounter; X58.XXXA Exposure to other specified factors, initial encounter
CPT/HCPCS: 20610; 36415; 77002; 85025; 85652; 86140; 87070; 87075; 87205

== ENCOUNTER 2018-01-22 14:00 | Emergency (ER) | payer MEDICAID, OTHER ==
[2018-01-22 14:07] VITALS: BP 150/90
--- NOTE | 2018-01-22 14:39 | ER Document Report ---
ED Medical Screen (RME) - General Chief Complaint: Leg Swelling Stated Complaint: LEG SWELLING Time Seen by Provider: 01/22/18 14:35 Notes: Patient says he was having pain and swelling of both lower legs for the past couple of days. 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 He has had these blood clots to 3 times in the past. He is never had pulmonary emboli. Denies any chest pains. Denies shortness of breath. Patient's had a left total hip replacement that had to be redone because the size was not accurate, according to the patient. He is wheelchair confined at this time. TRAVEL OUTSIDE OF THE [place] IN LAST 30 DAYS: No - Related Data Allergies/Adverse Reactions: acetaminophen [From Tylenol] Adverse Reaction (Verified 01/22/18 14:00) Past Medical History - Social History Chew tobacco use (# tins/day): No Frequency of alcohol use: Occasional - Past Medical History Cardiac Medical History: Reports: Hx Hypertension Denies: Hx Atrial Fibrillation, Hx Congestive Heart Failure, Hx Coronary Artery Disease, Hx Heart Attack, Hx Hypercholesterolemia, Hx Peripheral Vascular Disease, Hx Heart Murmur Renal/ Medical History: Denies: Hx Peritoneal Dialysis Musculoskeltal Medical History: Reports Hx Arthritis, Denies Hx Fibromyalgia, Denies Hx Muscular Dystrophy, Reports Hx Musculoskeletal Trauma - LEFT HIP Traumatic Medical History: Denies: Hx Fractures Past Surgical History: Reports: Hx Orthopedic Surgery - left hip. Denies: Hx Appendectomy, Hx Bowel Surgery, Hx Cholecystectomy, Hx Coronary Artery Bypass Graft, Hx Gastric Bypass Surgery, Hx Herniorrhaphy, Hx Pacemaker, Hx Tonsillectomy - Immunizations Immunizations up to date: Yes Hx Diphtheria, Pertussis, Tetanus Vaccination: Yes History of Influenza Vaccine for 11/2016 - 04/2017 Season: No Physical Exam - Vital signs Vitals: Temp Pulse Resp BP Pulse Ox 98.0 F 111 H 18 150/90 H 97 01/22/18 14:03 01/22/18 14:03 01/22/18 14:03 01/22/18 14:03 01/22/18 14:03 Course - Vital Signs Vital signs: Temp Pulse Resp BP Pulse Ox 98.0 F 111 H 18 150/90 H 97 01/22/18 14:03 01/22/18 14:03 01/22/18 14:03 01/22/18 14:03 01/22/18 14:03 Doctor's Discharge - Discharge Referrals: NAVIN MCGRATH MD [Primary Care Provider] - Follow up as needed
[2018-01-22 15:03] LABS: ABSOLUTE EOSINOPHILS # (AUTO) 0.2 10^3/uL (0.0-0.6); ABSOLUTE LYMPHOCYTES (AUTO) 1.4 10^3/uL (0.5-4.7); ABSOLUTE MONOCYTES (AUTO) 0.9 10^3/uL (0.1-1.4); ABSOLUTE NEUT (AUTO) 3.7 10^3/uL (1.7-8.2); BASOPHILS % (AUTO) 0.6 % (0-2); EOSINOPHILS % (AUTO) 2.6 % (0-6); HEMATOCRIT 43.5 % (37.9-51.0); HEMOGLOBIN 14.4 g/dL (13.5-17.0); LYMPHOCYTES % (AUTO) 22.2 % (13-45); MEAN CORPUSCULAR HEMOGLOBIN 27.7 pg (27.0-33.4); MEAN CORPUSCULAR HGB CONC 33.1 g/dL (32.0-36.0); MEAN CORPUSCULAR VOLUME 84 fl (80-97); MONOCYTES % (AUTO) 14.9 % (3-13); PLATELET COUNT 309 10^3/uL (150-450); RED BLOOD COUNT 5.21 10^6/uL (4.35-5.55); RED CELL DISTRIBUTION WIDTH 16.7 % (11.5-14.0); SEGMENTED NEUTROPHILS % (AUTO) 59.7 % (42-78); TOTAL CELLS COUNTED % (AUTO) 100 %; WHITE BLOOD COUNT 6.2 10^3/uL (4.0-10.5)
[2018-01-22 15:08] LABS: INTERNATIONAL RATION (INR) 1.01; PROTHROMBIN TIME 13.8 SEC (11.4-15.4)
[2018-01-22 15:22] LABS: ALANINE AMINOTRANSFERASE 40 U/L (21-72); ALBUMIN 4.4 g/dL (3.5-5.0); ALKALINE PHOSPHATASE 94 U/L (38-126); ANION GAP 13 (5-19); ASPARTATE AMINO TRANSFERASE 46 U/L (17-59); BILIRUBIN,DIRECT 0.2 mg/dL (0.0-0.4); BILIRUBIN,TOTAL 0.3 mg/dL (0.2-1.3); BLOOD UREA NITROGEN 10 mg/dL (7-20); CALCIUM 9.6 mg/dL (8.4-10.2); CARBON DIOXIDE 25 mmol/L (22-30); CHLORIDE 102 mmol/L (98-107); GLUCOSE 120 mg/dL (75-110); POTASSIUM 4.3 mmol/L (3.6-5.0); SODIUM 140.3 mmol/L (137-145); TOTAL PROTEIN 7.7 g/dL (6.3-8.2)
--- NOTE | 2018-01-22 15:27 | ER Document Report ---
HPI - HPI Time Seen by Provider: 01/22/18 14:35 Pain Level: 5 Notes: Patient is a 47-year-old male with a history of left hip surgery and previous lower extremity DVTs who presents to the ED complaining of bilateral lower extremity swelling and intermittent soreness associated over the last few days primarily. Patient states that he has not been able to wear his compression stockings as he has a probation ankle bracelet on. He otherwise has been able to eat and drink without difficulty. He is urinating normally and having normal bowel movements. He has never had any other cardiopulmonary medical history. He has no other concerns or complaints. Denies any headache, fever, URI, sore throat, chest pain, palpitations, syncope, cough, shortness of breath , wheeze, dyspnea, abdominal pain, nausea/vomiting/diarrhea, urinary retention, dysuria, hematuria, loss of control of bowel or bladder, numbness/tingling, saddle anesthesia, muscle paralysis/weakness, or rash. - ROS Systems Reviewed and Negative: Yes All other systems reviewed and negative - REPRODUCTIVE Reproductive: DENIES: : Past Medical History - Social History Smoking Status: Current Every Day Smoker Chew tobacco use (# tins/day): No Frequency of alcohol use: Occasional Family History: Reviewed & Not Pertinent Patient has suicidal ideation: No Patient has homicidal ideation: No - Past Medical History Cardiac Medical History: Reports: Hx Hypertension Denies: Hx Atrial Fibrillation, Hx Congestive Heart Failure, Hx Coronary Artery Disease, Hx Heart Attack, Hx Hypercholesterolemia, Hx Peripheral Vascular Disease, Hx Heart Murmur Renal/ Medical History: Denies: Hx Peritoneal Dialysis Musculoskeletal Medical History: Reports Hx Arthritis, Denies Hx Fibromyalgia, Denies Hx Muscular Dystrophy, Reports Hx Musculoskeletal Trauma - LEFT HIP Traumatic Medical History: Denies: Hx Fractures Past Surgical History: Reports: Hx Orthopedic Surgery - left hip. Denies: Hx Appendectomy, Hx Bowel Surgery, Hx Cholecystectomy, Hx Coronary Artery Bypass Graft, Hx Gastric Bypass Surgery, Hx Herniorrhaphy, Hx Pacemaker, Hx Tonsillectomy - Immunizations Immunizations up to date: Yes Hx Diphtheria, Pertussis, Tetanus Vaccination: Yes Vertical Provider Document - CONSTITUTIONAL Agree With Documented VS: Yes Notes: PHYSICAL EXAMINATION: GENERAL: Well-appearing, well-nourished and in no acute distress. A&Ox4. Answers questions appropriately. LUNGS: Breath sounds clear to auscultation bilaterally and equal. No wheezes rales or rhonchi. HEART: Regular rate and rhythm without murmurs, rubs, gallops. ABDOMEN: Soft, nontender, nondistended abdomen. No guarding, no rebound. No masses appreciated. Normal bowel sounds present. No CVA tenderness bilaterally. Musculoskeletal: FROM to passive/active. Strength 5+/5. Extremities: 1-2+ pitting edema b/l LE. Mansoor negative. No excessive erythema , warmth. No streaks, tenderness, or purulence. Peripheral pulses 2+. Capillary refill less than 3 seconds. No obvious asymmetry. NEUROLOGICAL: Normal speech, normal gait. Normal sensory, motor exams PSYCH: Normal mood, normal affect. SKIN: Warm, Dry, normal turgor, no rashes or lesions noted. - INFECTION CONTROL TRAVEL OUTSIDE OF THE [place] IN LAST 30 DAYS: No Course - Re-evaluation Re-evalutation: 01/22/18 17:36 Patient is an afebrile, well-hydrated, 47-year-old male who presents to the ED with bilateral lower extremity edema. Vitals are currently acceptable. Patient does have bilateral lower extremity edema without evidence of cellulitis or obvious DVT. There has been a delay in the care regarding Doppler and patient needs to go home and wants to sign out AMA. I did review the risk and benefit of leaving AMA as well as the possibility of . Patient has verbalized understanding and is still requesting to leave AMA. His lab work is acceptable. He has not had any dyspnea, chest pain, or shortness of breath. Because the patient will be leaving prior to Doppler, I reviewed with Dr. Ocampo. We will give the patient Lovenox subcu. Patient states that he will be returning in the morning for his Doppler ultrasound at that time. Patient is also going to be scheduling an appointment with his family provider for Wednesday or Wednesday. Return to the ED with any worsening/concerning symptoms otherwise as reviewed. Patient is in agreement. - Vital Signs Vital signs: Temp Pulse Resp BP Pulse Ox 98.0 F 111 H 18 150/90 H 97 01/22/18 14:03 01/22/18 14:03 01/22/18 14:03 01/22/18 14:03 01/22/18 14:03 - Laboratory Result Diagrams: 01/22/18 14:43 01/22/18 14:43 Laboratory results interpreted by me: 01/22/18 14:43 RDW 16.7 H Monocytes % 14.9 H Discharge - Discharge Clinical Impression: Bilateral lower extremity edema Condition: Stable Disposition: AGAINST MEDICAL ADVICE Additional Instructions: As reviewed, you are leaving AGAINST MEDICAL ADVICE with an incomplete workup. Worse case scenario, you could go home and . Do not hesitate to return to the emergency department with any concerns or worsening symptoms. You were given Lovenox, which is the treatment for DVT. Make sure you have strict follow -up in the morning as discussed for further evaluation and management. Follow- up with your primary care doctor in 2-3 days as well. Forms: Elevated Blood Pressure Referrals: NAVIN MCGRATH MD [Primary Care Provider] - 01/24/18
[2018-01-22] MEDS ORDERED: ENOXAPARIN SODIUM INJ 150 MG/1 ML DISP.SYRIN SUBCUT SCH ×2 (17:30→18:00)
== END 2018-01-22 17:54 | disposition left against medical advice (07) ==
LOC: ER 14:00
DX: R60.0 Localized edema (principal); I10 Essential (primary) hypertension; F17.200 Nicotine dependence, unspecified, uncomplicated; Z53.20 Procedure and treatment not carried out because of patient's decision for unspecified reasons; Z86.718 Personal history of other venous thrombosis and embolism
CPT/HCPCS: 99283; 96372; 36415; 85025; 85610; 80053; J3490